=== PATIENT | male | born 1930 | race Caucasian/White ===

== ENCOUNTER 2017-10-11 10:19 | Emergency (ER) | payer MEDICARE, MEDICAID ==
[2017-10-11 10:21] VITALS: BMI 29.9
[2017-10-11 10:22] VITALS: BP 140/77; PULSE 77; RESP 20; TEMP 96.4; O2SAT 97
--- NOTE | 2017-10-11 10:43 | ED PDOC ---
HPI: Psych/Substance Abuse Time Seen by Provider: 10/11/17 10:28 Chief Complaint (Nursing): Psychiatric Evaluation Chief Complaint (Provider): Aggressive History Per: Other (nurse) History/Exam Limitations: clinical condition Onset/Duration Of Symptoms: Days (today) Additional Complaint(s): Pt. was aggressive at the [facility] and sent to the ED. Pt. with limited communication. Not aggressive in the ED. In no distress or appearance of pain. Past Medical History Reviewed: Historical Data, Nursing Documentation, Vital Signs Vital Signs: Last Vital Signs Temp 96.4 F L 10/11/17 10:21 Pulse 77 10/11/17 10:21 Resp 20 10/11/17 10:21 BP 140/77 10/11/17 10:21 Pulse Ox 97 10/11/17 10:21 - Medical History PMH: Parkinson's Disease Denies: Depression - Family History Family History: States: Unknown Family Hx - Living Arrangements Living Arrangements: Long-Term/Assist Lvng - Home Medications Home Medications: Ambulatory Orders Medication Instructions Recorded Carbidopa/Levodopa/Entacapone 150 mg PO Q4H 05/26/14 [Stalevo 150] Pramipexole Di-HCl [Mirapex ER] 2.25 mg PO QPM 05/26/14 Rasagiline Mesylate [Azilect] 1 mg PO DAILY 05/26/14 Vitamin B Complex & Vitamin C 1 tab PO DAILY 05/26/14 [Strovite] - Allergies Allergies/Adverse Reactions: Allergies Allergy/AdvReac Type Severity Reaction Status Date / Time No Known Allergies Allergy Verified 10/11/17 10:28 Review of Systems Review Of Systems: ROS cannot be obtained secondary to pt's inabilty to answer questions. Physical Exam - Reviewed Nursing Documentation Reviewed: Yes Vital Signs Reviewed: Yes - Physical Exam Appears: Positive for: Well, Non-toxic, No Acute Distress Head Exam: Positive for: ATRAUMATIC, NORMAL INSPECTION, NORMOCEPHALIC Skin: Positive for: Normal Color, Warm, DRY Eye Exam: Positive for: Normal appearance, PERRL. Negative for: Periorbital swelling, Periorbital tenderness ENT: Positive for: Normal ENT Inspection. Negative for: Nasal Congestion, Pharyngeal Erythema Neck: Positive for: Normal, Painless ROM, Supple Cardiovascular/Chest: Positive for: Regular Rate, Rhythm. Negative for: Edema Respiratory: Positive for: CNT, Normal Breath Sounds Gastrointestinal/Abdominal: Positive for: Normal Exam, Bowel Sounds, Soft. Negative for: Tenderness Back: Positive for: Normal Inspection. Negative for: L CVA Tenderness, R CVA Tenderness Extremity: Positive for: Other. Negative for: Normal ROM (moving extremities on his will), Tenderness, Calf Tenderness Neurologic/Psych: Positive for: Alert, Other (limited as pt. has dementia and not following commands; moving on his own will.). Negative for: Oriented, Facial Droop - ECG O2 Sat by Pulse Oximetry: 97 - Progress ED Course And Treament: 1141: Crisis saw pt. Does not meet criteria for admit. Stable. Alert. Disposition - Clinical Impression Clinical Impression: Dementia - Patient ED Disposition Is Patient to be Admitted: No Counseled Patient/Family Regarding: Diagnosis, Need For Followup - Disposition Referrals: [facility] [Outside] - 10/16/17 Disposition: Other Institution Disposition Time: 11:42 Condition: STABLE Additional Instructions: Return if not better in 3 days. Instructions: Dementia (ED) Forms: [employer] (Estonian)
== END 2017-10-11 11:52 | disposition home or self-care (01) ==
LOC: H.ER 10:19
DX: F03.90 Unspecified dementia, unspecified severity, without behavioral disturbance, psychotic disturbance, mood disturbance, and anxiety (principal); G20 Parkinson's disease

== ENCOUNTER 2018-08-12 00:04 | Inpatient (IN) | payer MEDICARE, MEDICAID ==
[2018-08-12 00:18] VITALS: BMI 26.6
[2018-08-12] MEDS ORDERED: Sodium Chloride 0.9% 1,000 ML IV STA (00:43)
--- NOTE | 2018-08-12 01:25 | ED PDOC ---
HPI: SOB/CHF/COPD Time Seen by Provider: 08/12/18 00:15 Chief Complaint (Nursing): Shortness Of Breath Chief Complaint (Provider): Shortness of breath History Per: Patient, EMS History/Exam Limitations: other (Parkinson's and dementia) Onset/Duration Of Symptoms: Mins Current Symptoms Are (Timing): Still Present Additional Complaint(s): 88 year old male, with a past medical history of Parkinson's and dementia, HTN, and recent prolonged stay in the hospital for sepsis, presents to the ED via EMS complaining of shortness of breath. Patient was sent from the detention at [facility]. The detention had called EMS because patient was hypoxic to 90% on room air. Patient denies fever. History is limited because of patient's dementia. PMD: none provided Past Medical History Reviewed: Historical Data, Nursing Documentation, Vital Signs Vital Signs: Last Vital Signs Temp 98.3 F 08/12/18 00:18 Pulse 103 H 08/12/18 00:30 Resp 31 H 08/12/18 00:30 BP 144/79 08/12/18 00:18 Pulse Ox 93 L 08/12/18 00:30 - Medical History PMH: CHF, Dementia, HTN (denies), Parkinson's Disease Denies: Depression, Diabetes, Hepatitis, HIV, Seizures, Sexually Transmitted Disease - Surgical History Surgical History: No Surg Hx - Family History Family History: States: Unknown Family Hx - Home Medications Home Medications: Ambulatory Orders Medication Instructions Recorded Carbidopa/Levodopa/Entacapone 0.5 tab PEG QID 05/26/14 [Stalevo 150] Pramipexole Di-HCl [Mirapex ER] 0.5 mg PEG TID 05/26/14 Albuterol Sulfate 2.5 mg IH Q8 07/05/18 Finasteride [Proscar] 5 mg PEG DAILY 07/05/18 Scopolamine 1 mg/72 hr 1 patch TOP Q72 07/05/18 [Transderm-Scop] Ascorbic Acid [Vitamin C 500 mg 500 mg PEG DAILY 08/12/18 Tab] Dextran 70/Hypromellose 1 each OP BID 08/12/18 [Artificial Tears] Doxazosin [Cardura] 4 mg PEG DAILY 08/12/18 Entacapone [Comtan] 200 mg PEG QID 08/12/18 Famotidine [Pepcid] 20 mg PEG DAILY 08/12/18 Ipratropium 0.02% [Ipratropium 0.02 inh IH Q8 08/12/18 Liberty 2.5 Ml] Metoprolol Tartrate [Lopressor] 25 mg PEG BID 08/12/18 Rasagiline Mesylate [Azilect] 1 mg PEG DAILY 08/12/18 - Allergies Allergies/Adverse Reactions: Allergies Allergy/AdvReac Type Severity Reaction Status Date / Time No Known Allergies Allergy Verified 10/11/17 10:28 Review of Systems ROS Statement: Except As Marked, All Systems Reviewed And Found Negative Constitutional: Negative for: Fever Respiratory: Positive for: Other (hypoxia) Physical Exam - Reviewed Nursing Documentation Reviewed: Yes Vital Signs Reviewed: Yes - Physical Exam Appears: Positive for: In Acute Distress (Chronically ill) Head Exam: Positive for: ATRAUMATIC, NORMOCEPHALIC Skin: Positive for: Normal Color, Warm, Dry Eye Exam: Positive for: Normal appearance ENT: Positive for: Other (Dry mucous membranes) Neck: Positive for: Normal, Painless ROM Cardiovascular/Chest: Positive for: Regular Rate, Rhythm Respiratory: Positive for: Normal Breath Sounds, Other (tachypnea ). Negative for: Wheezing, Respiratory Distress Gastrointestinal/Abdominal: Positive for: Normal Exam, Soft. Negative for: Tenderness Rectal: Positive for: Other (Multiple ulcers to the perirectal area) Extremity: Positive for: Normal ROM Neurologic/Psych: Positive for: Alert, Other (Does not speak) - Laboratory Results Result Diagrams: 08/12/18 01:03 08/12/18 01:03 - ECG O2 Sat by Pulse Oximetry: 93 (RA) Pulse Ox Interpretation: Abnormal Medical Decision Making Medical Decision Making: Initial Impression: 88 year old male with a medical history of Parkinson's, dementia, HTN, and recent prolonged stay in hospital for sepsis, presenting with hypoxia and tachypnea. Patient is afebrile and has 93-94% oxygen saturation on room air in ER. Initial Plan: --VBG --ECG --CMP --Magnesium stat --Phosphorous stat --CBC --PTT --Prothrombin time --Chest X-ray --Sodium chloride 1000mL IV --Blood culture -Urine culture --Urinalysis Will check blood work, chest X-ray, and urine studies for signs of infection. PAtient has signs of hypernatremia and UTI Baxter was replaced sterilly ABx given in accordance with previous Microbiology D5 in sterile water given for hypernatremia Dr. Boris gonsales Condition: fair ------- Scribe Attestation: Documented by Krzysztof Michaud acting as a scribe for Carlos Robles MD. Provider Scribe Attestation: All medical record entries made by the Scribe were at my direction and personally dictated by me. I have reviewed the chart and agree that the record accurately reflects my personal performance of the history, physical exam, medical decision making, and the department course for this patient. I have also personally directed, reviewed, and agree with the discharge instructions and disposition. Disposition - Clinical Impression Clinical Impression: Hypernatremia Discussed With : Hamilton Hyatt Seman - Disposition Disposition Time: 02:00 Condition: FAIR
[2018-08-12 01:26] LABS: BASO # 0.1 K/uL (0.0-0.2); BASO % 0.7 % (0.0-2.0); EOS % 0.3 % (0.0-4.0); HEMOGLOBIN 9.5 g/dL (12.0-18.0); LYMPH # 0.7 K/uL (1.0-4.3); MEAN CELL VOLUME 92.3 fl (80.0-94.0); MEAN CORPUSCULAR HEMOGLOBIN 29.5 pg (27.0-31.0); MEAN PLATELET VOLUME 8.3 fl (7.2-11.7); MONO # 0.4 K/uL (0.0-0.8); MONO % 5.2 % (0.0-10.0); NEUT # 5.8 K/uL (1.8-7.0); NEUT % 83.8 % (50.0-75.0); NRBC % 0.1 % (0.0-0.0); RBC 3.21 Mil/uL (4.40-5.90); RED CELL DISTRIBUTION WIDTH 17.2 % (11.5-14.5)
[2018-08-12 01:33] LABS: INR 1.3; PROTHROMBIN TIME 15.2 Seconds (9.8-13.1)
[2018-08-12 01:36] LABS: PARTIAL THROMBOPLASTIN TIME 35.3 Seconds (25.6-37.1)
[2018-08-12 01:37] LABS: SQUAMOUS EPITHIAL < 1 /hpf (0-5); URINE BACTERIA MANY (<OCC); URINE BILIRUBIN NEGATIVE (NEGATIVE); URINE BLOOD MODERATE (NEGATIVE); URINE CLARITY TURBID (Clear); URINE COLOR AMBER (YELLOW); URINE GLUCOSE (UA) NEG (NEGATIVE); URINE LEUKOCYTE ESTERASE LARGE Leu/uL (Negative); URINE PROTEIN 30 mg/dL (NEGATIVE); WBC CLUMPS OCC /hpf
[2018-08-12 01:38] LABS: ALB/GLOB RATIO 0.6 (1.0-2.1); ALBUMIN 2.5 g/dL (3.5-5.0); ALT/SGPT 34 U/L (21-72); AST/SGOT 33 U/L (17-59); BLOOD UREA NITROGEN 57 mg/dl (9-20); GFR NON-AFRICAN AMERICAN > 60
[2018-08-12] MEDS ORDERED: Meropenem 1 GM in Sodium Chloride 0.9% 100 ML IVPB STA (02:28)
--- NOTE | 2018-08-12 09:41 | RAD ---
Date of service: 08/12/2018 HISTORY: Sepsis Patient COMPARISON: No prior. FINDINGS: LUNGS: No active pulmonary disease. PLEURA: No significant pleural effusion identified, no pneumothorax apparent. CARDIOVASCULAR: Aortic calcifications. Cardiomegaly. No pulmonary vascular congestion. OSSEOUS STRUCTURES: No significant abnormalities. VISUALIZED UPPER ABDOMEN: Normal. OTHER FINDINGS: None. IMPRESSION: No active disease.
--- NOTE | 2018-08-12 15:04 | CP.PCM.HP ---
History of Present Illness - History of Present Illness History of Present Illness: CC: Shortness of Breath, AMS,and Generalized Weakness History of Present Illness: History from the Daughter (Tal) and Medical Record An 88 year old male, with a past medical history of Parkinson's and Dementia, HTN, and recent prolonged stay in the hospital for sepsis was transferred from [place] for AMS, shortness of breath and generalized weakness. Patient was sent from the custodial at [facility]. The custodial had called EMS because patient was Hypoxic to 90% on room air. Patient denies fever. History is limited because of patient's dementia. In the ER, patient was found to have Stage IV Sacral Decubitus Ulcer, Severe Dehydration and Hypernatremia. Present on Admission - Present on Admission Any Indicators Present on Admission: Yes Decubitus Ulcer Present: Yes Decubitus Ulcer Stage: IV Review of Systems - Review of Systems All systems: reviewed and no additional remarkable complaints except Review of Systems: as per HPI Past Patient History - Tetanus Immunizations Tetanus Immunization: Unknown - Past Medical History & Family History Past Medical History?: Yes Past Family History: Reviewed and not pertinent - Past Social History Smoking Status: Never Smoked Alcohol: None Drugs: Denies - CARDIAC Hx Congestive Heart Failure: Yes Hx Hypertension: Yes (denies) - PULMONARY Hx Respiratory Disorders: Yes (COPD) - NEUROLOGICAL Hx Dementia: Yes Hx Parkinson's Disease: Yes Hx Seizures: No - HEENT Hx HEENT Problems: No - RENAL Hx Chronic Kidney Disease: No - ENDOCRINE/METABOLIC Hx Endocrine Disorders: No - HEMATOLOGICAL/ONCOLOGICAL Hx Human Immunodeficiency Virus (HIV): No - INTEGUMENTARY Hx Dermatological Problems: Yes Other/Comment: Unstageable ulcer to sacrum - MUSCULOSKELETAL/RHEUMATOLOGICAL Hx Musculoskeletal Disorders: Yes Hx Falls: Yes - GASTROINTESTINAL Hx Gastrointestinal Disorders: Yes Other/Comment: Incontinence - GENITOURINARY/GYNECOLOGICAL Hx Sexually Transmitted Disorders: No - PSYCHIATRIC Hx Depression: No - SURGICAL HISTORY Hx Surgeries: No (pt denies) - ANESTHESIA Hx Anesthesia: (UNKNOWN) Hx Anesthesia Reactions: (UNKNOWN) Hx Malignant Hyperthermia: (UNKNOWN) Has any member of the family had a problem w/ anesthesia?: (UNKNOWN) Meds Allergies/Adverse Reactions: Allergies Allergy/AdvReac Type Severity Reaction Status Date / Time No Known Allergies Allergy Verified 10/11/17 10:28 Physical Exam - Constitutional Appears: In Acute Distress, Cachectic, Chronically Ill - Head Exam Head Exam: ATRAUMATIC, NORMAL INSPECTION, NORMOCEPHALIC - ENT Exam ENT Exam: Mucous Membranes Dry - Respiratory Exam Respiratory Exam: Clear to Auscultation Bilateral - Cardiovascular Exam Cardiovascular Exam: +S1, +S2 - GI/Abdominal Exam GI & Abdominal Exam: Normal Bowel Sounds, Soft Additional comments: +PEG tube. - Extremities Exam Additional comments: Atrophy - Back Exam Additional comments: Large stage IV Sacral Decubitus Ulcer with Necrotic Tissues. - Skin Additional comments: Pressure Ulcers Stage IV Sacral Pressure Ulcers Results - Vital Signs Recent Vital Signs: Last Vital Signs Temp 98.2 F 08/12/18 08:38 Pulse 86 08/12/18 08:38 Resp 20 08/12/18 08:38 BP 121/59 L 08/12/18 06:15 Pulse Ox 98 08/12/18 08:38 - Labs Result Diagrams: 08/15/18 06:05 08/15/18 06:05 Labs: Laboratory Results - last 24 hr 08/12/18 08/12/18 08/12/18 01:03 01:03 01:03 WBC 7.0 RBC 3.21 L Hgb 9.5 L Hct 29.6 L MCV 92.3 MCH 29.5 MCHC 32.0 L RDW 17.2 H Plt Count 394 MPV 8.3 Neut % (Auto) 83.8 H Lymph % (Auto) 10.0 L Navarro % (Auto) 5.2 Eos % (Auto) 0.3 Baso % (Auto) 0.7 Neut # (Auto) 5.8 Lymph # (Auto) 0.7 L Navarro # (Auto) 0.4 Eos # (Auto) 0.0 Baso # (Auto) 0.1 PT 15.2 H INR 1.3 APTT 35.3 Sodium 155 H Potassium 3.7 Chloride 116 H Carbon Dioxide 33 H Anion Gap 10 BUN 57 H Creatinine 0.8 Est GFR ( Amer) > 60 Est GFR (Non-Af Amer) > 60 Random Glucose 123 H Calcium 8.0 L Phosphorus 3.5 Magnesium 2.4 H Total Bilirubin 0.6 AST 33 ALT 34 Alkaline Phosphatase 81 Total Protein 6.4 Albumin 2.5 L Globulin 3.9 Albumin/Globulin Ratio 0.6 L Urine Color Urine Clarity Urine pH Ur Specific [place] Urine Protein Urine Glucose (UA) Urine Ketones Urine Blood Urine Nitrate Urine Bilirubin Urine Urobilinogen Ur Leukocyte Esterase Urine RBC (Auto) Urine WBC Clumps (Auto) Urine Microscopic WBC Ur Squamous Epith Cells Urine Bacteria 08/12/18 01:25 WBC RBC Hgb Hct MCV MCH MCHC RDW Plt Count MPV Neut % (Auto) Lymph % (Auto) Navarro % (Auto) Eos % (Auto) Baso % (Auto) Neut # (Auto) Lymph # (Auto) Navarro # (Auto) Eos # (Auto) Baso # (Auto) PT INR APTT Sodium Potassium Chloride Carbon Dioxide Anion Gap BUN Creatinine Est GFR ( Amer) Est GFR (Non-Af Amer) Random Glucose Calcium Phosphorus Magnesium Total Bilirubin AST ALT Alkaline Phosphatase Total Protein Albumin Globulin Albumin/Globulin Ratio Urine Color Nina Urine Clarity Turbid Urine pH 5.0 Ur Specific [place] 1.021 Urine Protein 30 Urine Glucose (UA) Neg Urine Ketones Negative Urine Blood Moderate Urine Nitrate Negative Urine Bilirubin Negative Urine Urobilinogen 2.0 Ur Leukocyte Esterase Large Urine RBC (Auto) 19 H Urine WBC Clumps (Auto) Occ H Urine Microscopic WBC 337 H Ur Squamous Epith Cells < 1 Urine Bacteria Many H Assessment & Plan (1) Altered mental state Assessment and Plan: due to Metabolic Encephalopathy Status: Acute Priority: High (2) Hypernatremia Status: Acute Priority: High (3) Dementia Status: Chronic Priority: High (4) Parkinsonian syndrome Status: Chronic Priority: High (5) UTI due to extended-spectrum beta lactamase (ESBL) producing Escherichia coli Status: Acute Priority: High - Assessment and Plan (Free Text) Plan: IVF D5W Free Water Flush PEG Feeding @35cc/hr, and Increase by 10cc/hr every 6hrs to targert 60cc/hrC/W IV Add IV Vancomycin Wound Care Nurse, ID and Surgery Consult Blood, Wound and Urine Cultures Monitor CBC and BMP ESR Dietary Consult May Need CT or MRI of the Back to R/co Osteomyelitis. D/w patient's Daughter about POC, and RN/Wound care nurse. Also Discussed about the Code status, and she wanted everything to be done. Tel#[phone].
[2018-08-12 16:15] LABS: VENOUS BLOOD GAS BASE EXCESS 7.9 mmol/L (0.0-2.0); VENOUS BLOOD GAS PCO2 41 mmHg (40-60); VENOUS BLOOD GAS PO2 48 mm/Hg (30-55)
[2018-08-12] MEDS: Artificial Tears Opht Soln OU SCH (16:45)
[2018-08-12 16:48] LABS: BLOOD UREA NITROGEN 44 mg/dl (9-20); CALCIUM 7.9 mg/dL (8.4-10.2); GFR NON-AFRICAN AMERICAN > 60
[2018-08-12] MEDS: PRAMIPEXOLE DI HCL 0.5 MG PEG SCH (16:59)
[2018-08-12] MEDS: RASAGILINE MESYLATE 1 MG PEG SCH (17:00)
[2018-08-12] MEDS: Meropenem 1 GM in Sodium Chloride 0.9% 100 ML IVPB SCH (17:01)
[2018-08-12] MEDS ORDERED: Povidone Iodine Topical 10% Sol ONE (19:52)
[2018-08-13] MEDS: Meropenem 1 GM in Sodium Chloride 0.9% 100 ML IVPB SCH ×3 (00:59→16:11)
[2018-08-13] MEDS: Dakin's Topical 0.5%-Full Strength (480 ml) TOP SCH ×2 (01:10→08:39)
--- NOTE | 2018-08-13 06:20 | CP.PCM.CON ---
History of Present Illness - History of Present Illness History of Present Illness: General Surgery Consult Note for Dr. Denise Consult: Stage 4 sacral decubitus ulcer HPI: 88 year old male, past medical history of Parkinson's and dementia, presents with a stage 4 sacral decubitus ulcer. Patient was recently discharged from [facility] after diagnosis of urosepsis with prolonged hospital stay that resulted in sacral ulcer formation that has progressively worsened over the last few weeks. Patient is poor historian. History obtained via previous medical records. Noticed to have increased oral secretions. No fevers, chills, nausea, vomiting, diarrhea, shortness of breath, chest pain, or urinary symptoms at this time. PMH: see above PSH: unknown FH: noncontributory SH: denies t/a/d ALL: NKDA Meds: See MAR Review of Systems - Review of Systems Systems not reviewed;Unavailable: Dementia Past Patient History - Tetanus Immunizations Tetanus Immunization: Unknown - Past Medical History & Family History Past Medical History?: Yes - Past Social History Smoking Status: Never Smoked - CARDIAC Hx Congestive Heart Failure: Yes Hx Hypertension: Yes (denies) - PULMONARY Hx Respiratory Disorders: Yes (COPD) - NEUROLOGICAL Hx Dementia: Yes Hx Parkinson's Disease: Yes Hx Seizures: No - HEENT Hx HEENT Problems: No - RENAL Hx Chronic Kidney Disease: No - ENDOCRINE/METABOLIC Hx Endocrine Disorders: No - HEMATOLOGICAL/ONCOLOGICAL Hx Human Immunodeficiency Virus (HIV): No - INTEGUMENTARY Hx Dermatological Problems: Yes Other/Comment: Unstageable ulcer to sacrum - MUSCULOSKELETAL/RHEUMATOLOGICAL Hx Musculoskeletal Disorders: Yes Hx Falls: Yes - GASTROINTESTINAL Hx Gastrointestinal Disorders: Yes Other/Comment: Incontinence - GENITOURINARY/GYNECOLOGICAL Hx Sexually Transmitted Disorders: No - PSYCHIATRIC Hx Depression: No - SURGICAL HISTORY Hx Surgeries: No (pt denies) - ANESTHESIA Hx Anesthesia: (UNKNOWN) Hx Anesthesia Reactions: (UNKNOWN) Hx Malignant Hyperthermia: (UNKNOWN) Has any member of the family had a problem w/ anesthesia?: (UNKNOWN) Meds Allergies/Adverse Reactions: Allergies Allergy/AdvReac Type Severity Reaction Status Date / Time No Known Allergies Allergy Verified 10/11/17 10:28 - Medications Medications: Current Medications Acetaminophen (Tylenol 325mg Tab) 650 mg PEG Q6 PRN PRN Reason: Temperature 101 F and above Albuterol/Ipratropium (Duoneb 3 Mg/0.5 Mg (3 Ml) Ud) 3 ml INH RQ6 PRN PRN Reason: Shortness of Breath Artificial Tears (Artificial Tears) 1 drop OU BID [facility] Last Admin: 08/12/18 16:45 Dose: 1 drop Ascorbic Acid (Vitamin C 500 Mg Tab) 500 mg PEG DAILY [facility] Last Admin: 08/12/18 16:50 Dose: 500 mg Bisacodyl (Dulcolax) 10 mg RC DAILY PRN PRN Reason: if no BM adrienne 3 days Carbidopa/Levodopa (Sinemet) 1.5 tab PEG QID [facility] Last Admin: 08/12/18 22:03 Dose: 1.5 tab Doxazosin Mesylate (Cardura) 4 mg PEG DAILY [facility] Last Admin: 08/12/18 16:47 Dose: 4 mg Entacapone (Comtan) 200 mg PEG QID [facility] Last Admin: 08/12/18 22:02 Dose: 200 mg Finasteride (Proscar) 5 mg PEG DAILY [facility] Last Admin: 08/12/18 16:48 Dose: 5 mg Heparin Sodium (Porcine) (Heparin) 5,000 units SC Q8 [facility]; Protocol Last Admin: 08/13/18 01:14 Dose: 5,000 units Home Med (Pramipexole Di-Hcl [Mirapex Er]) 0.5 mg PEG TID [facility] Last Admin: 08/12/18 16:59 Dose: 0.5 mg Home Med (Rasagiline Mesylate [Azilect]) 1 mg PEG DAILY [facility] Last Admin: 08/12/18 17:00 Dose: 1 mg Meropenem 1 gm/ Sodium (Chloride) 100 mls @ 100 mls/hr IVPB Q8 [facility]; Protocol Last Admin: 08/13/18 00:59 Dose: 100 mls/hr Vancomycin HCl 1 gm/ Sodium (Chloride) 250 mls @ 166.667 mls/hr IVPB Q12H [facility]; Protocol Last Admin: 08/13/18 03:18 Dose: 166.667 mls/hr Dextrose (Dextrose 5% In Water 1000 Ml) 1,000 mls @ 100 mls/hr IV .Q10H [facility] Stop: 08/13/18 23:22 Last Admin: 08/13/18 00:58 Dose: 100 mls/hr Metoprolol Tartrate (Lopressor) 25 mg PEG BID [facility] Last Admin: 08/12/18 16:50 Dose: 25 mg Pantoprazole Sodium (Protonix Inj) 40 mg IVP DAILY [facility] Last Admin: 08/12/18 16:52 Dose: 40 mg Scopolamine (Transderm-Scop) 1 patch TD Q72 [facility] Last Admin: 08/12/18 16:51 Dose: 1 patch Sodium Hypochlorite (Dakins Solution 0.5%) 0 ml TOP DAILY [facility] Last Admin: 08/13/18 01:10 Dose: Not Given Sodium Hypochlorite (Dakins Solution 0.25%) 0 ml TOP DAILY [facility] Zinc Sulfate (Zinc Sulfate 220 Mg Cap) 220 mg PEG DAILY [facility] Last Admin: 08/12/18 16:51 Dose: 220 mg Physical Exam - Constitutional Appears: No Acute Distress, Older Than Stated Age, Cachectic, Chronically Ill - Head Exam Head Exam: ATRAUMATIC, NORMAL INSPECTION, NORMOCEPHALIC - Eye Exam Eye Exam: EOMI - ENT Exam ENT Exam: Mucous Membranes Dry - Respiratory Exam Respiratory Exam: absent: Respiratory Distress - GI/Abdominal Exam GI & Abdominal Exam: Soft. absent: Tenderness - Neurological Exam Neurological exam: Alert - Skin Additional comments: stage 4 chronic sacral decubitus ulcer - areas of devitalized tissue, with visible bone Foul smelling, purlent drainage, no bleeding, erythematous wound edges Results - Vital Signs Recent Vital Signs: Last Vital Signs Temp 98.5 F 08/13/18 00:32 Pulse 79 08/13/18 00:32 Resp 19 08/13/18 00:32 BP 102/51 L 08/13/18 00:32 Pulse Ox 96 08/13/18 00:32 - Labs Result Diagrams: 08/12/18 01:03 08/12/18 16:15 Labs: Laboratory Results - last 24 hr 08/12/18 08/12/18 08/12/18 01:05 16:15 16:15 D-Dimer, Quantitative 841 H pO2 48 VBG pH 7.50 H VBG pCO2 41 VBG HCO3 30.6 VBG Total CO2 33.3 H VBG O2 Sat (Calc) 87.6 H VBG Base Excess 7.9 H VBG Potassium 3.5 L Sodium 155.0 H 152 H Chloride 119.0 H 119 H Glucose 121 H Lactate 1.0 FiO2 21.0 Potassium 3.6 Carbon Dioxide 31 H Anion Gap 6 L BUN 44 H Creatinine 0.8 Est GFR ( Amer) > 60 Est GFR (Non-Af Amer) > 60 Random Glucose 124 H Calcium 7.9 L Venous Blood Potassium 3.5 L Assessment & Plan - Assessment and Plan (Free Text) Assessment: 88M w/ chronic stage 4 sacral decubitus ulcer Plan: Wet to dry dressings with Dakins daily Wound vac placement Debridement of fibrotic, devitalized tissue Recommend MRI of pelvis or bone scan to rule out osteomyelitis Air mattress Turn Q2 Off load Further recommendations per Dr. Howie Anaya PGY1
[2018-08-13 06:33] LABS: BASO % 0.3 % (0.0-2.0); EOS % 0.9 % (0.0-4.0); LYMPH # 0.7 K/uL (1.0-4.3); LYMPH % 14.1 % (20.0-40.0); MEAN CELL VOLUME 92.5 fl (80.0-94.0); MEAN CORPUSCULAR HEMOGLOBIN 30.2 pg (27.0-31.0); MEAN CORPUSCULAR HGB CONC 32.6 g/dL (33.0-37.0); MEAN PLATELET VOLUME 7.9 fl (7.2-11.7); MONO # 0.3 K/uL (0.0-0.8); NEUT # 4.2 K/uL (1.8-7.0); NEUT % 79.7 % (50.0-75.0); RBC 2.65 Mil/uL (4.40-5.90); RED CELL DISTRIBUTION WIDTH 17.1 % (11.5-14.5); WHITE BLOOD COUNT 5.3 K/uL (4.8-10.8)
[2018-08-13 06:56] LABS: ALB/GLOB RATIO 0.6 (1.0-2.1); ALBUMIN 2.1 g/dL (3.5-5.0); ALT/SGPT 15 U/L (21-72); AST/SGOT 30 U/L (17-59); BLOOD UREA NITROGEN 39 mg/dl (9-20); CALCIUM 7.8 mg/dL (8.4-10.2); GFR NON-AFRICAN AMERICAN > 60
--- NOTE | 2018-08-13 08:08 | CP.PCM.PN ---
Subjective - Date & Time of Evaluation Date of Evaluation: 08/13/18 Time of Evaluation: 08:05 - Subjective Subjective: SURGERY NOTE FOR DR. DELGADO 88M seen and examined at bedside. No acute events overnight. No fevers overnight. Wound debrided yesterday. Objective - Vital Signs/Intake and Output Vital Signs (last 24 hours): Temp Pulse Resp BP Pulse Ox 98.5 F 79 19 102/51 L 96 08/13/18 00:32 08/13/18 00:32 08/13/18 00:32 08/13/18 00:32 08/13/18 00:32 - Medications Medications: Current Medications Acetaminophen (Tylenol 325mg Tab) 650 mg PEG Q6 PRN PRN Reason: Temperature 101 F and above Albuterol/Ipratropium (Duoneb 3 Mg/0.5 Mg (3 Ml) Ud) 3 ml INH RQ6 PRN PRN Reason: Shortness of Breath Artificial Tears (Artificial Tears) 1 drop OU BID [facility] Last Admin: 08/12/18 16:45 Dose: 1 drop Ascorbic Acid (Vitamin C 500 Mg Tab) 500 mg PEG DAILY [facility] Last Admin: 08/12/18 16:50 Dose: 500 mg Bisacodyl (Dulcolax) 10 mg RC DAILY PRN PRN Reason: if no BM adrienne 3 days Carbidopa/Levodopa (Sinemet) 1.5 tab PEG QID [facility] Last Admin: 08/12/18 22:03 Dose: 1.5 tab Doxazosin Mesylate (Cardura) 4 mg PEG DAILY [facility] Last Admin: 08/12/18 16:47 Dose: 4 mg Entacapone (Comtan) 200 mg PEG QID [facility] Last Admin: 08/12/18 22:02 Dose: 200 mg Finasteride (Proscar) 5 mg PEG DAILY [facility] Last Admin: 08/12/18 16:48 Dose: 5 mg Heparin Sodium (Porcine) (Heparin) 5,000 units SC Q8 [facility]; Protocol Last Admin: 08/13/18 01:14 Dose: 5,000 units Home Med (Pramipexole Di-Hcl [Mirapex Er]) 0.5 mg PEG TID [facility] Last Admin: 08/12/18 16:59 Dose: 0.5 mg Home Med (Rasagiline Mesylate [Azilect]) 1 mg PEG DAILY [facility] Last Admin: 08/12/18 17:00 Dose: 1 mg Meropenem 1 gm/ Sodium (Chloride) 100 mls @ 100 mls/hr IVPB Q8 [facility]; Protocol Last Admin: 08/13/18 00:59 Dose: 100 mls/hr Vancomycin HCl 1 gm/ Sodium (Chloride) 250 mls @ 166.667 mls/hr IVPB Q12H [facility]; Protocol Last Admin: 08/13/18 03:18 Dose: 166.667 mls/hr Dextrose (Dextrose 5% In Water 1000 Ml) 1,000 mls @ 100 mls/hr IV .Q10H [facility] Stop: 08/13/18 23:22 Last Admin: 08/13/18 00:58 Dose: 100 mls/hr Metoprolol Tartrate (Lopressor) 25 mg PEG BID [facility] Last Admin: 08/12/18 16:50 Dose: 25 mg Pantoprazole Sodium (Protonix Inj) 40 mg IVP DAILY [facility] Last Admin: 08/12/18 16:52 Dose: 40 mg Scopolamine (Transderm-Scop) 1 patch TD Q72 [facility] Last Admin: 08/12/18 16:51 Dose: 1 patch Sodium Hypochlorite (Dakins Solution 0.5%) 0 ml TOP DAILY [facility] Last Admin: 08/13/18 01:10 Dose: Not Given Sodium Hypochlorite (Dakins Solution 0.25%) 0 ml TOP DAILY [facility] Zinc Sulfate (Zinc Sulfate 220 Mg Cap) 220 mg PEG DAILY [facility] Last Admin: 08/12/18 16:51 Dose: 220 mg - Labs Labs: 08/13/18 05:30 08/13/18 05:30 PT 15.2 Seconds (9.8-13.1) H 08/12/18 01:03 INR 1.3 08/12/18 01:03 APTT 35.3 Seconds (25.6-37.1) 08/12/18 01:03 - Constitutional Appears: No Acute Distress - Respiratory Exam Respiratory Exam: Clear to Ausculation Bilateral, NORMAL BREATHING PATTERN - Cardiovascular Exam Cardiovascular Exam: REGULAR RHYTHM, +S1, +S2 - GI/Abdominal Exam GI & Abdominal Exam: Soft. absent: Distended, Firm, Guarding, Rigid, Tenderness - Extremities Exam Extremities Exam: absent: Pedal Edema, Tenderness - Back Exam Additional comments: stage 4 chronic sacral decubitus ulcer Assessment and Plan - Assessment and Plan (Free Text) Assessment: 88M with sacral decubitus s/p bedside debridement POD#1 Plan: - continue wet to dry dressing - Wound care nurse consult Further recs discuss with Dr. Howie Cao, PGY3
[2018-08-13] MEDS: Artificial Tears Opht Soln OU SCH ×2 (08:35→16:12)
[2018-08-13] MEDS: RASAGILINE MESYLATE 1 MG PEG SCH (08:36)
[2018-08-13] MEDS: PRAMIPEXOLE DI HCL 0.5 MG PEG SCH ×3 (08:38→16:12)
[2018-08-13] MEDS: Dakin's Topical 0.25%-Half Strength (480 ml) TOP SCH (08:39)
[2018-08-13] MEDS ORDERED: Dakin's Topical 0.5%-Full Strength (480 ml) TOP SCH (09:00)
--- NOTE | 2018-08-13 11:41 | CP.PCM.CON ---
Past Patient History - Tetanus Immunizations Tetanus Immunization: Unknown - Past Medical History & Family History Past Medical History?: Yes - Past Social History Smoking Status: Never Smoked - CARDIAC Hx Congestive Heart Failure: Yes Hx Hypertension: Yes (denies) - PULMONARY Hx Respiratory Disorders: Yes (COPD) - NEUROLOGICAL Hx Dementia: Yes Hx Parkinson's Disease: Yes Hx Seizures: No - HEENT Hx HEENT Problems: No - RENAL Hx Chronic Kidney Disease: No - ENDOCRINE/METABOLIC Hx Endocrine Disorders: No - HEMATOLOGICAL/ONCOLOGICAL Hx Human Immunodeficiency Virus (HIV): No - INTEGUMENTARY Hx Dermatological Problems: Yes Other/Comment: Unstageable ulcer to sacrum - MUSCULOSKELETAL/RHEUMATOLOGICAL Hx Musculoskeletal Disorders: Yes Hx Falls: Yes - GASTROINTESTINAL Hx Gastrointestinal Disorders: Yes Other/Comment: Incontinence - GENITOURINARY/GYNECOLOGICAL Hx Sexually Transmitted Disorders: No - PSYCHIATRIC Hx Depression: No - SURGICAL HISTORY Hx Surgeries: No (pt denies) - ANESTHESIA Hx Anesthesia: (UNKNOWN) Hx Anesthesia Reactions: (UNKNOWN) Hx Malignant Hyperthermia: (UNKNOWN) Has any member of the family had a problem w/ anesthesia?: (UNKNOWN) Meds Allergies/Adverse Reactions: Allergies Allergy/AdvReac Type Severity Reaction Status Date / Time No Known Allergies Allergy Verified 10/11/17 10:28 - Medications Medications: Current Medications Acetaminophen (Tylenol 325mg Tab) 650 mg PEG Q6 PRN PRN Reason: Temperature 101 F and above Albuterol/Ipratropium (Duoneb 3 Mg/0.5 Mg (3 Ml) Ud) 3 ml INH RQ6 PRN PRN Reason: Shortness of Breath Artificial Tears (Artificial Tears) 1 drop OU BID [facility] Last Admin: 08/13/18 08:35 Dose: 1 drop Ascorbic Acid (Vitamin C 500 Mg Tab) 500 mg PEG DAILY [facility] Last Admin: 08/13/18 08:36 Dose: 500 mg Bisacodyl (Dulcolax) 10 mg RC DAILY PRN PRN Reason: if no BM adrienne 3 days Carbidopa/Levodopa (Sinemet) 1.5 tab PEG QID [facility] Last Admin: 08/13/18 08:35 Dose: 1.5 tab Doxazosin Mesylate (Cardura) 4 mg PEG DAILY [facility] Last Admin: 08/13/18 08:36 Dose: 4 mg Entacapone (Comtan) 200 mg PEG QID [facility] Last Admin: 08/13/18 08:36 Dose: 200 mg Finasteride (Proscar) 5 mg PEG DAILY [facility] Last Admin: 08/13/18 08:37 Dose: 5 mg Heparin Sodium (Porcine) (Heparin) 5,000 units SC Q8 [facility]; Protocol Last Admin: 08/13/18 08:37 Dose: 5,000 units Home Med (Pramipexole Di-Hcl [Mirapex Er]) 0.5 mg PEG TID [facility] Last Admin: 08/13/18 08:38 Dose: 0.5 mg Home Med (Rasagiline Mesylate [Azilect]) 1 mg PEG DAILY [facility] Last Admin: 08/13/18 08:36 Dose: 1 mg Meropenem 1 gm/ Sodium (Chloride) 100 mls @ 100 mls/hr IVPB Q8 [facility]; Protocol Last Admin: 08/13/18 08:35 Dose: 100 mls/hr Vancomycin HCl 1 gm/ Sodium (Chloride) 250 mls @ 166.667 mls/hr IVPB Q12H [facility]; Protocol Last Admin: 08/13/18 03:18 Dose: 166.667 mls/hr Dextrose (Dextrose 5% In Water 1000 Ml) 1,000 mls @ 100 mls/hr IV .Q10H [facility] Stop: 08/13/18 23:22 Last Admin: 08/13/18 08:38 Dose: Not Given Metoprolol Tartrate (Lopressor) 25 mg PEG BID [facility] Last Admin: 08/13/18 08:37 Dose: 25 mg Pantoprazole Sodium (Protonix Inj) 40 mg IVP DAILY [facility] Last Admin: 08/13/18 08:37 Dose: 40 mg Scopolamine (Transderm-Scop) 1 patch TD Q72 [facility] Last Admin: 08/12/18 16:51 Dose: 1 patch Sodium Hypochlorite (Dakins Solution 0.5%) 0 ml TOP DAILY [facility] Last Admin: 08/13/18 08:39 Dose: Not Given Sodium Hypochlorite (Dakins Solution 0.25%) 0 ml TOP DAILY [facility] Last Admin: 08/13/18 08:39 Dose: 1 applic Zinc Sulfate (Zinc Sulfate 220 Mg Cap) 220 mg PEG DAILY [facility] Last Admin: 08/13/18 08:38 Dose: 220 mg Results - Vital Signs Recent Vital Signs: Last Vital Signs Temp 98.4 F 08/13/18 09:10 Pulse 75 1210/18 09:10 Resp 20 08/13/18 09:10 BP 114/60 08/13/18 09:10 Pulse Ox 93 L 08/13/18 09:10 - Labs Result Diagrams: 08/13/18 05:30 08/13/18 05:30 Labs: Laboratory Results - last 24 hr 08/12/18 08/12/18 08/12/18 01:05 16:15 16:15 WBC RBC Hgb Hct MCV MCH MCHC RDW Plt Count MPV Neut % (Auto) Lymph % (Auto) [place] % (Auto) Eos % (Auto) Baso % (Auto) Neut # (Auto) Lymph # (Auto) [place] # (Auto) Eos # (Auto) Baso # (Auto) D-Dimer, Quantitative 841 H pO2 48 VBG pH 7.50 H VBG pCO2 41 VBG HCO3 30.6 VBG Total CO2 33.3 H VBG O2 Sat (Calc) 87.6 H VBG Base Excess 7.9 H VBG Potassium 3.5 L Sodium 155.0 H 152 H Chloride 119.0 H 119 H Glucose 121 H Lactate 1.0 FiO2 21.0 Potassium 3.6 Carbon Dioxide 31 H Anion Gap 6 L BUN 44 H Creatinine 0.8 Est GFR ( Amer) > 60 Est GFR (Non-Af Amer) > 60 Random Glucose 124 H Calcium 7.9 L Phosphorus Magnesium Total Bilirubin AST ALT Alkaline Phosphatase Total Protein Albumin Globulin Albumin/Globulin Ratio Venous Blood Potassium 3.5 L 08/13/18 08/13/18 05:30 05:30 WBC 5.3 RBC 2.65 L Hgb 8.0 L Hct 24.5 L MCV 92.5 MCH 30.2 MCHC 32.6 L RDW 17.1 H Plt Count 307 MPV 7.9 Neut % (Auto) 79.7 H Lymph % (Auto) 14.1 L [place] % (Auto) 5.0 Eos % (Auto) 0.9 Baso % (Auto) 0.3 Neut # (Auto) 4.2 Lymph # (Auto) 0.7 L [place] # (Auto) 0.3 Eos # (Auto) 0.0 Baso # (Auto) 0.0 D-Dimer, Quantitative pO2 VBG pH VBG pCO2 VBG HCO3 VBG Total CO2 VBG O2 Sat (Calc) VBG Base Excess VBG Potassium Sodium 151 H Chloride 120 H Glucose Lactate FiO2 Potassium 3.5 L Carbon Dioxide 30 Anion Gap 5 L BUN 39 H Creatinine 0.8 Est GFR ( Amer) > 60 Est GFR (Non-Af Amer) > 60 Random Glucose 119 H Calcium 7.8 L Phosphorus 3.6 Magnesium 2.2 Total Bilirubin 0.6 AST 30 ALT 15 L D Alkaline Phosphatase 69 Total Protein 5.4 L Albumin 2.1 L Globulin 3.3 Albumin/Globulin Ratio 0.6 L Venous Blood Potassium
--- NOTE | 2018-08-13 11:43 | CARD ---
APPROVED REPORT Date of service: 08/12/2018 EKG Measurement Heart [id number] <Conclusion> Normal sinus rhythm Left axis deviation Minimal voltage criteria for LVH, may be normal variant Nonspecific ST abnormality Abnormal ECG
[2018-08-13 12:41] LABS: VENOUS BLOOD GAS PCO2 49 mmHg (40-60); VENOUS BLOOD GAS PO2 27 mm/Hg (30-55); VENOUS BLOOD PH 7.41 (7.32-7.43)
--- NOTE | 2018-08-13 15:29 | CT ---
Date of service: 08/13/2018 PROCEDURE: CT Lumbar Spine without contrast HISTORY: Stage 4 pressure ulcer, r/o OM COMPARISON: None available. TECHNIQUE: Axial computed tomography images were obtained of the lumbar spine without the use of intravenous contrast. Coronal and sagittal reformatted images were created and reviewed. Radiation dose: Total exam DLP = 1900.11 mGy-cm. This CT exam was performed using one or more of the following dose reduction techniques: Automated exposure control, adjustment of the mA and/or kV according to patient size, and/or use of iterative reconstruction technique. FINDINGS: VERTEBRAE: There is mild dextroscoliosis in the lumbar spine. There is degenerative 7 mm retrolisthesis of L3 on L4. There is diffuse bone demineralization. No acute fracture. The sacrococcygeal angulation is normal. There is erosion in the posterior cortex of the 1st coccygeal segment, the 2nd coccygeal segment appears eroded and there is also erosion of the anterior aspect of the 3rd coccygeal segment. DISCS/SPINAL CANAL/NEURAL FORAMINA: Evaluation of the discs and spinal canal is limited on noncontrast CT examination. There is desiccation of the L2-3 and L3-4 discs with vacuum phenomena there is multilevel degenerative disc disease due to combination of osteophytes, disc bulges and multilevel facet arthropathy with variable degree of neural foraminal narrowing without spinal canal stenosis. PARASPINAL SOFT TISSUES: The paraspinous soft tissues are normal. There is a large midline soft tissue defect overlying the lower sacrum and coccyx extending to the coccygeal segments. OTHER FINDINGS: There is an indwelling Baxter catheter with partial decompression of the urinary bladder. Large amount of stool in the colon and fecal stasis in the rectum. 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 No acute fracture. Additional comments as described above.
--- NOTE | 2018-08-13 17:25 | CP.PCM.PN ---
Subjective - Date & Time of Evaluation Date of Evaluation: 08/12/18 Time of Evaluation: 19:50 - Subjective Subjective: Procedure Note for Dr. Denise PROCEDURE DATE: 08/12/18 PRE-OP DIAGNOSIS: Stage 4 sacral decubitus ulcer POST-OP DIAGNOSIS: Same PROCEDURE: Excisional debridement of sacral decubitus ulcer Performing Physician: Dorian Anaya D.O Consent was obtained. A timeout protocol was performed prior to initiating the procedure. The sacral wound area was prepared and draped in the usual, sterile manner. Area was prepped with Betadine. Excision of devitalized tissue was done with scissors and forceps. Bleeding was minimal. Packin*4 gauze soaked in Dakin's Dressing with ABD pads Followup: The patient tolerated the procedure well without complications. Standard post-procedure care is explained. Objective - Vital Signs/Intake and Output Vital Signs (last 24 hours): Temp Pulse Resp BP Pulse Ox 97.7 F 75 19 109/59 L 95 08/13/18 16:00 08/13/18 16:00 08/13/18 16:00 08/13/18 16:00 08/13/18 16:00 Intake and Output: 08/13/18 08/13/18 06:59 18:59 Intake Total 2235 Output Total 600 Balance 1635 - Medications Medications: Current Medications Acetaminophen (Tylenol 325mg Tab) 650 mg PEG Q6 PRN PRN Reason: Temperature 101 F and above Albuterol/Ipratropium (Duoneb 3 Mg/0.5 Mg (3 Ml) Ud) 3 ml INH RQ6 PRN PRN Reason: Shortness of Breath Artificial Tears (Artificial Tears) 1 drop OU BID [facility] Last Admin: 08/13/18 16:12 Dose: 1 drop Ascorbic Acid (Vitamin C 500 Mg Tab) 500 mg PEG DAILY [facility] Last Admin: 08/13/18 08:36 Dose: 500 mg Bisacodyl (Dulcolax) 10 mg RC DAILY PRN PRN Reason: if no BM adrienne 3 days Carbidopa/Levodopa (Sinemet) 1.5 tab PEG QID [facility] Last Admin: 08/13/18 16:13 Dose: 1.5 tab Doxazosin Mesylate (Cardura) 4 mg PEG DAILY [facility] Last Admin: 08/13/18 08:36 Dose: 4 mg Entacapone (Comtan) 200 mg PEG QID [facility] Last Admin: 08/13/18 16:12 Dose: 200 mg Finasteride (Proscar) 5 mg PEG DAILY [facility] Last Admin: 08/13/18 08:37 Dose: 5 mg Heparin Sodium (Porcine) (Heparin) 5,000 units SC Q8 [facility]; Protocol Last Admin: 08/13/18 16:12 Dose: 5,000 units Home Med (Pramipexole Di-Hcl [Mirapex Er]) 0.5 mg PEG TID [facility] Last Admin: 08/13/18 16:12 Dose: 0.5 mg Home Med (Rasagiline Mesylate [Azilect]) 1 mg PEG DAILY [facility] Last Admin: 08/13/18 08:36 Dose: 1 mg Meropenem 1 gm/ Sodium (Chloride) 100 mls @ 100 mls/hr IVPB Q8 [facility]; Protocol Last Admin: 08/13/18 16:11 Dose: 100 mls/hr Vancomycin HCl 1 gm/ Sodium (Chloride) 250 mls @ 166.667 mls/hr IVPB Q12H [facility]; Protocol Last Admin: 08/13/18 15:21 Dose: 166.667 mls/hr Dextrose (Dextrose 5% In Water 1000 Ml) 1,000 mls @ 100 mls/hr IV .Q10H [facility] Stop: 08/13/18 23:22 Last Admin: 08/13/18 12:10 Dose: 100 mls/hr Metoprolol Tartrate (Lopressor) 25 mg PEG BID [facility] Last Admin: 08/13/18 16:12 Dose: Not Given Pantoprazole Sodium (Protonix Inj) 40 mg IVP DAILY [facility] Last Admin: 08/13/18 08:37 Dose: 40 mg Scopolamine (Transderm-Scop) 1 patch TD Q72 [facility] Last Admin: 08/12/18 16:51 Dose: 1 patch Sodium Hypochlorite (Dakins Solution 0.5%) 0 ml TOP DAILY [facility] Last Admin: 08/13/18 08:39 Dose: Not Given Sodium Hypochlorite (Dakins Solution 0.25%) 0 ml TOP DAILY [facility] Last Admin: 08/13/18 08:39 Dose: 1 applic Zinc Sulfate (Zinc Sulfate 220 Mg Cap) 220 mg PEG DAILY [facility] Last Admin: 08/13/18 08:38 Dose: 220 mg - Labs Labs: 08/13/18 05:30 08/13/18 05:30 PT 15.2 Seconds (9.8-13.1) H 08/12/18 01:03 INR 1.3 08/12/18 01:03 APTT 35.3 Seconds (25.6-37.1) 08/12/18 01:03 - Constitutional Appears: Cachectic, Chronically Ill - Head Exam Head Exam: ATRAUMATIC, NORMAL INSPECTION, NORMOCEPHALIC - Eye Exam Eye Exam: EOMI - ENT Exam ENT Exam: Mucous Membranes Dry - Respiratory Exam Respiratory Exam: NORMAL BREATHING PATTERN. absent: Respiratory Distress - Neurological Exam Neurological Exam: Alert, Awake - Skin Additional comments: Chronic stage 4 decubitus ulcer - debrided with no bleeding encountered Assessment and Plan - Assessment and Plan (Free Text) Assessment: 88M w/ chronic stage 4 sacral decubitus ulcer Plan: Wound debrided of devitalized tissue Patient tolerated procedure without complication Packing w/ gauze and Dakins solution Continue local wound care Further recommendations per Dr. Howie Anaya PGY1
--- NOTE | 2018-08-13 20:58 | CP.PCM.PN ---
Subjective - Date & Time of Evaluation Date of Evaluation: 08/13/18 Time of Evaluation: 14:55 Objective - Vital Signs/Intake and Output Vital Signs (last 24 hours): Temp Pulse Resp BP Pulse Ox 97.7 F 75 19 109/59 L 95 08/13/18 16:00 08/13/18 16:00 08/13/18 16:00 08/13/18 16:00 08/13/18 16:00 Intake and Output: 08/13/18 08/14/18 18:59 06:59 Intake Total 2235 Output Total 600 Balance 1635 - Medications Medications: Current Medications Acetaminophen (Tylenol 325mg Tab) 650 mg PEG Q6 PRN PRN Reason: Temperature 101 F and above Albuterol/Ipratropium (Duoneb 3 Mg/0.5 Mg (3 Ml) Ud) 3 ml INH RQ6 PRN PRN Reason: Shortness of Breath Artificial Tears (Artificial Tears) 1 drop OU BID [facility] Last Admin: 08/13/18 16:12 Dose: 1 drop Ascorbic Acid (Vitamin C 500 Mg Tab) 500 mg PEG DAILY [facility] Last Admin: 08/13/18 08:36 Dose: 500 mg Bisacodyl (Dulcolax) 10 mg RC DAILY PRN PRN Reason: if no BM adrienne 3 days Carbidopa/Levodopa (Sinemet) 1.5 tab PEG QID [facility] Last Admin: 08/13/18 16:13 Dose: 1.5 tab Doxazosin Mesylate (Cardura) 4 mg PEG DAILY [facility] Last Admin: 08/13/18 08:36 Dose: 4 mg Entacapone (Comtan) 200 mg PEG QID [facility] Last Admin: 08/13/18 16:12 Dose: 200 mg Finasteride (Proscar) 5 mg PEG DAILY [facility] Last Admin: 08/13/18 08:37 Dose: 5 mg Heparin Sodium (Porcine) (Heparin) 5,000 units SC Q8 [facility]; Protocol Last Admin: 08/13/18 16:12 Dose: 5,000 units Home Med (Pramipexole Di-Hcl [Mirapex Er]) 0.5 mg PEG TID [facility] Last Admin: 08/13/18 16:12 Dose: 0.5 mg Home Med (Rasagiline Mesylate [Azilect]) 1 mg PEG DAILY [facility] Last Admin: 08/13/18 08:36 Dose: 1 mg Meropenem 1 gm/ Sodium (Chloride) 100 mls @ 100 mls/hr IVPB Q8 [facility]; Protocol Last Admin: 08/13/18 16:11 Dose: 100 mls/hr Vancomycin HCl 1 gm/ Sodium (Chloride) 250 mls @ 166.667 mls/hr IVPB Q12H [facility]; Protocol Last Admin: 08/13/18 15:21 Dose: 166.667 mls/hr Dextrose (Dextrose 5% In Water 1000 Ml) 1,000 mls @ 100 mls/hr IV .Q10H [facility] Stop: 08/13/18 23:22 Last Admin: 08/13/18 12:10 Dose: 100 mls/hr Metoprolol Tartrate (Lopressor) 25 mg PEG BID [facility] Last Admin: 08/13/18 16:12 Dose: Not Given Pantoprazole Sodium (Protonix Inj) 40 mg IVP DAILY [facility] Last Admin: 08/13/18 08:37 Dose: 40 mg Scopolamine (Transderm-Scop) 1 patch TD Q72 [facility] Last Admin: 08/12/18 16:51 Dose: 1 patch Sodium Hypochlorite (Dakins Solution 0.5%) 0 ml TOP DAILY [facility] Last Admin: 08/13/18 08:39 Dose: Not Given Sodium Hypochlorite (Dakins Solution 0.25%) 0 ml TOP DAILY [facility] Last Admin: 08/13/18 08:39 Dose: 1 applic Zinc Sulfate (Zinc Sulfate 220 Mg Cap) 220 mg PEG DAILY [facility] Last Admin: 08/13/18 08:38 Dose: 220 mg - Labs Labs: 08/13/18 05:30 08/13/18 05:30 PT 15.2 Seconds (9.8-13.1) H 08/12/18 01:03 INR 1.3 08/12/18 01:03 APTT 35.3 Seconds (25.6-37.1) 08/12/18 01:03
[2018-08-14] MEDS: Meropenem 1 GM in Sodium Chloride 0.9% 100 ML IVPB SCH ×3 (01:00→16:45)
[2018-08-14 06:34] LABS: BASO # 0.1 K/uL (0.0-0.2); EOS # 0.1 K/uL (0.0-0.7); EOS % 1.1 % (0.0-4.0); HEMOGLOBIN 7.9 g/dL (12.0-18.0); LYMPH # 0.7 K/uL (1.0-4.3); LYMPH % 11.9 % (20.0-40.0); MEAN CORPUSCULAR HEMOGLOBIN 29.6 pg (27.0-31.0); MEAN CORPUSCULAR HGB CONC 31.5 g/dL (33.0-37.0); MEAN PLATELET VOLUME 8.7 fl (7.2-11.7); MONO # 0.3 K/uL (0.0-0.8); NEUT # 4.9 K/uL (1.8-7.0); NRBC % 0.1 % (0.0-0.0); RBC 2.66 Mil/uL (4.40-5.90); RED CELL DISTRIBUTION WIDTH 17.6 % (11.5-14.5)
[2018-08-14 06:41] LABS: ALB/GLOB RATIO 0.6 (1.0-2.1); ALBUMIN 2.1 g/dL (3.5-5.0); ALT/SGPT 24 U/L (21-72); AST/SGOT 21 U/L (17-59); BLOOD UREA NITROGEN 28 mg/dl (9-20); CALCIUM 7.6 mg/dL (8.4-10.2); GFR NON-AFRICAN AMERICAN > 60
[2018-08-14] MEDS: Artificial Tears Opht Soln OU SCH ×2 (08:39→16:41)
[2018-08-14] MEDS: Dakin's Topical 0.5%-Full Strength (480 ml) TOP SCH (08:42)
[2018-08-14] MEDS: Dakin's Topical 0.25%-Half Strength (480 ml) TOP SCH (08:42)
[2018-08-14] MEDS: PRAMIPEXOLE DI HCL 0.5 MG PEG SCH ×3 (08:44→16:40)
[2018-08-14] MEDS: RASAGILINE MESYLATE 1 MG PEG SCH (08:47)
--- NOTE | 2018-08-14 10:01 | CP.PCM.CON ---
History of Present Illness - History of Present Illness History of Present Illness: 88 year old male, presents with a stage 4 sacral decubitus ulcer. referred for ID eval of possible sepsis secondary to recurrent UTI, decubitus PMH: Parkinson's and dementia, PSH: unknown FH: noncontributory SH: denies t/a/d ALL: NKDA Review of Systems - Review of Systems Systems not reviewed;Unavailable: Altered Mental Status All systems: reviewed and no additional remarkable complaints except - Constitutional Constitutional: absent: As Per HPI, Anorexia, Chills, Daytime Sleepiness, Excessive Sweating, Fatigue, Fever, Frequent Falls, Headache, Increased Appetite, Lethargy, Malaise, Night Sweats, Snoring, Sleep Apnea, Weight Gain, Weight Loss, Weakness, Other - EENT Eyes: absent: As Per HPI, Blind Spots, Blurred Vision, Change in Vision, Decreased Night Vision, Diplopia, Discharge, Dry Eye, Exophthalmos, Floaters, Irritation, Itchy Eyes, Loss of Peripheral Vision, Pain, Photophobia, Requires Corrective Lenses, Sees Flashes, Spots in Vision, Tunnel Vision, Other Visual Disturbances, Loss of Vision, Other Ears: absent: As Per HPI, Decreased Hearing, Ear Discharge, Ear Pain, Tinnitus, Abnormal Hearing, Disequilibrium, Dizziness, Other Nose/Mouth/Throat: absent: As Per HPI, Epistaxis, Nasal Congestion, Nasal Discharge, Nasal Obstruction, Nasal Trauma, Nose Pain, Post Nasal Drip, Sinus Pain, Sinus Pressure, Bleeding Gums, Change in Voice, Dental Pain, Dry Mouth, Dysphagia, Halitosis, Hoarsness, Lip Swelling, Mouth Lesions, Mouth Pain, Odynophagia, Sore Throat, Throat Swelling, Tongue Swelling, Facial Pain, Neck Pain, Neck Mass, Other - Cardiovascular Cardiovascular: absent: As Per HPI, Acrocyanosis, Chest Pain, Chest Pain at Rest, Chest Pain with Activity, Claudication, Diaphoresis, Dyspnea, Dyspnea on Exertion, Edema, Irregular Heart Rhythm, Pain Radiating to Arm/Neck/Jaw, Leg Edema, Leg Ulcers, Lightheadedness, Orthopnea, Palpitations, Paroxysmal Nocturnal Dyspnea, Pedal Edema, Radiating Pain, Rapid Heart Rate, Slow Heart Rate, Syncope, Other - Respiratory Respiratory: absent: As Per HPI, Cough, Dyspnea, Hemoptysis, Dyspnea on Exertion, Wheezing, Snoring, Stridor, Pain on Inspiration, Chest Congestion, Excessive Mucous Production, Change in Mucous Color, Pain with Coughing, Other - Gastrointestinal Gastrointestinal: absent: As Per HPI, Abdominal Pain, Belching, Bloating, Change in Bowel Habits, Change in Stool Character, Coffee Ground Emesis, Constipation, Cramping, Diarrhea, Dyspepsia, Dysphagia, Early Satiety, Excessive Flatus, Fecal Incontinence, Heartburn, Hematemesis, Hematochezia, Loose Stools, Melena, Nausea, Odynophagia, Temesmus, Vomiting, Other - Genitourinary Genitourinary: absent: As Per HPI, Change in Urinary Stream, Difficulty Urinating, Dysuria, Flank Pain, Hematuria, Pyuria, Nocturia, Urinary Incontinence, Urinary Frequency, Urinary Hesitance, Urinary Urgency, Voiding Freq/Small Amts, Freq UTI, Hx Renal/Bladder Calculi, Hx /Renal Surgery, Bladder Distension, Other - Musculoskeletal Musculoskeletal: absent: As Per HPI, Abnormal Gait, Arthralgias, Atrophy, Back Pain, Deformity, Joint Swelling, Limited Range of Motion, Loss of Height, Muscle Cramps, Muscle Weakness, Myalgias, Neck Pain, Numbness, Radiating Pain into Limb, Stiffness, Tingling, Other Past Patient History - Tetanus Immunizations Tetanus Immunization: Unknown - Past Medical History & Family History Past Medical History?: Yes - Past Social History Smoking Status: Never Smoked - CARDIAC Hx Congestive Heart Failure: Yes Hx Hypertension: Yes (denies) - PULMONARY Hx Respiratory Disorders: Yes (COPD) - NEUROLOGICAL Hx Dementia: Yes Hx Parkinson's Disease: Yes Hx Seizures: No - HEENT Hx HEENT Problems: No - RENAL Hx Chronic Kidney Disease: No - ENDOCRINE/METABOLIC Hx Endocrine Disorders: No - HEMATOLOGICAL/ONCOLOGICAL Hx Human Immunodeficiency Virus (HIV): No - INTEGUMENTARY Hx Dermatological Problems: Yes Other/Comment: Unstageable ulcer to sacrum - MUSCULOSKELETAL/RHEUMATOLOGICAL Hx Musculoskeletal Disorders: Yes Hx Falls: Yes - GASTROINTESTINAL Hx Gastrointestinal Disorders: Yes Other/Comment: Incontinence - GENITOURINARY/GYNECOLOGICAL Hx Sexually Transmitted Disorders: No - PSYCHIATRIC Hx Depression: No - SURGICAL HISTORY Hx Surgeries: No (pt denies) - ANESTHESIA Hx Anesthesia: (UNKNOWN) Hx Anesthesia Reactions: (UNKNOWN) Hx Malignant Hyperthermia: (UNKNOWN) Has any member of the family had a problem w/ anesthesia?: (UNKNOWN) Meds Allergies/Adverse Reactions: Allergies Allergy/AdvReac Type Severity Reaction Status Date / Time No Known Allergies Allergy Verified 10/11/17 10:28 - Medications Medications: Current Medications Acetaminophen (Tylenol 325mg Tab) 650 mg PEG Q6 PRN PRN Reason: Temperature 101 F and above Albuterol/Ipratropium (Duoneb 3 Mg/0.5 Mg (3 Ml) Ud) 3 ml INH RQ6 PRN PRN Reason: Shortness of Breath Artificial Tears (Artificial Tears) 1 drop OU BID [facility] Last Admin: 08/14/18 08:39 Dose: 1 drop Ascorbic Acid (Vitamin C 500 Mg Tab) 500 mg PEG DAILY [facility] Last Admin: 08/14/18 08:48 Dose: 500 mg Bisacodyl (Dulcolax) 10 mg RC DAILY PRN PRN Reason: if no BM adrienne 3 days Carbidopa/Levodopa (Sinemet) 1.5 tab PEG QID [facility] Last Admin: 08/14/18 08:47 Dose: 1.5 tab Doxazosin Mesylate (Cardura) 4 mg PEG DAILY [facility] Last Admin: 08/14/18 08:52 Dose: 4 mg Entacapone (Comtan) 200 mg PEG QID [facility] Last Admin: 08/14/18 08:42 Dose: 200 mg Finasteride (Proscar) 5 mg PEG DAILY [facility] Last Admin: 08/14/18 08:44 Dose: 5 mg Heparin Sodium (Porcine) (Heparin) 5,000 units SC Q8 [facility]; Protocol Last Admin: 08/14/18 08:40 Dose: 5,000 units Home Med (Pramipexole Di-Hcl [Mirapex Er]) 0.5 mg PEG TID [facility] Last Admin: 08/14/18 08:44 Dose: 0.5 mg Home Med (Rasagiline Mesylate [Azilect]) 1 mg PEG DAILY [facility] Last Admin: 08/14/18 08:47 Dose: 1 mg Meropenem 1 gm/ Sodium (Chloride) 100 mls @ 100 mls/hr IVPB Q8 [facility]; Protocol Last Admin: 08/14/18 08:44 Dose: 100 mls/hr Vancomycin HCl 1 gm/ Sodium (Chloride) 250 mls @ 166.667 mls/hr IVPB Q12H [facility]; Protocol Last Admin: 08/14/18 03:06 Dose: 166.667 mls/hr Dextrose (Dextrose 5% In Water 1000 Ml) 1,000 mls @ 100 mls/hr IV .Q10H [facility] Stop: 08/14/18 23:39 Last Admin: 08/14/18 08:53 Dose: 100 mls/hr Metoprolol Tartrate (Lopressor) 25 mg PEG BID [facility] Last Admin: 08/14/18 08:43 Dose: 25 mg Pantoprazole Sodium (Protonix Inj) 40 mg IVP DAILY [facility] Last Admin: 08/14/18 08:45 Dose: 40 mg Scopolamine (Transderm-Scop) 1 patch TD Q72 [facility] Last Admin: 08/12/18 16:51 Dose: 1 patch Sodium Hypochlorite (Dakins Solution 0.5%) 0 ml TOP DAILY [facility] Last Admin: 08/14/18 08:42 Dose: Not Given Sodium Hypochlorite (Dakins Solution 0.25%) 0 ml TOP DAILY [facility] Last Admin: 08/14/18 08:42 Dose: 1 applic Zinc Sulfate (Zinc Sulfate 220 Mg Cap) 220 mg PEG DAILY [facility] Last Admin: 08/14/18 08:48 Dose: 220 mg Physical Exam - Constitutional Appears: No Acute Distress, Confused, Chronically Ill - Head Exam Head Exam: ATRAUMATIC, NORMOCEPHALIC - Eye Exam Eye Exam: absent: Conjunctival injection, EOMI, Normal appearance, Nystagmus, Periorbital swelling, Periorbital tenderness, PERRL, Scleral icterus Pupil Exam: absent: Fixed, Irregular, Miosis, Mydriatic, NORMAL ACCOMODATION, PERRL, Unequal - ENT Exam ENT Exam: Mucous Membranes Dry - Neck Exam Neck exam: Negative for: Lymphadenopathy - Respiratory Exam Respiratory Exam: Decreased Breath Sounds - Cardiovascular Exam Cardiovascular Exam: REGULAR RHYTHM, +S1, +S2 - GI/Abdominal Exam GI & Abdominal Exam: Diminished Bowel Sounds, Distended - Rectal Exam Rectal Exam: Deferred - Exam Exam: Scrotal Swelling - Extremities Exam Extremities exam: Positive for: pedal edema. Negative for: calf tenderness, pedal pulses present - Back Exam Back exam: absent: CVA tenderness (L), CVA tenderness (R) - Neurological Exam Neurological exam: Altered Results - Vital Signs Recent Vital Signs: Last Vital Signs Temp 98.9 F 08/14/18 08:16 Pulse 80 08/14/18 08:16 Resp 20 12/11/18 08:16 BP 101/57 L 08/14/18 08:16 Pulse Ox 98 08/14/18 08:16 - Labs Result Diagrams: 08/15/18 06:05 08/15/18 06:05 Labs: Laboratory Results - last 24 hr 08/12/18 08/14/18 08/14/18 03:52 06:05 06:05 WBC 6.0 RBC 2.66 L Hgb 7.9 L Hct 25.0 L MCV 94.0 MCH 29.6 MCHC 31.5 L RDW 17.6 H Plt Count 273 MPV 8.7 Neut % (Auto) 81.0 H Lymph % (Auto) 11.9 L [place] % (Auto) 5.0 Eos % (Auto) 1.1 Baso % (Auto) 1.0 Neut # (Auto) 4.9 Lymph # (Auto) 0.7 L [place] # (Auto) 0.3 Eos # (Auto) 0.1 Baso # (Auto) 0.1 pO2 27 L VBG pH 7.41 VBG pCO2 49 VBG HCO3 27.1 VBG Total CO2 32.6 H VBG O2 Sat (Calc) 49.9 VBG Base Excess 5.0 H VBG Potassium 3.7 Sodium 156.0 H 146 Chloride 119.0 H 118 H Glucose 119 H Lactate 1.2 FiO2 21.0 Potassium 3.9 Carbon Dioxide 28 Anion Gap 4 L BUN 28 H Creatinine 0.7 L Est GFR ( Amer) > 60 Est GFR (Non-Af Amer) > 60 Random Glucose 106 Calcium 7.6 L Total Bilirubin 0.5 AST 21 ALT 24 Alkaline Phosphatase 66 Total Protein 5.4 L Albumin 2.1 L Globulin 3.3 Albumin/Globulin Ratio 0.6 L Venous Blood Potassium 3.7 Assessment & Plan (1) Sepsis Status: Acute - Assessment and Plan (Free Text) Assessment: ESBL in urine Merrem added will follow
[2018-08-14 15:48] LABS: IRON 21 ug/dL (49-181)
[2018-08-14 15:57] LABS: % IRON SATURATION 17 % (20-55); TOTAL IRON BINDING CAPACITY 125 ug/dL (250-450)
[2018-08-14 22:37] LABS: FOLATE 5.3 ng/mL
[2018-08-15] MEDS: Meropenem 1 GM in Sodium Chloride 0.9% 100 ML IVPB SCH ×3 (00:17→16:58)
[2018-08-15 06:27] LABS: MEAN CELL VOLUME 94.9 fl (80.0-94.0); MEAN CORPUSCULAR HEMOGLOBIN 29.2 pg (27.0-31.0); MEAN CORPUSCULAR HGB CONC 30.8 g/dL (33.0-37.0); RBC 2.73 Mil/uL (4.40-5.90); WHITE BLOOD COUNT 6.3 K/uL (4.8-10.8)
[2018-08-15 07:05] LABS: ALB/GLOB RATIO 0.6 (1.0-2.1); ALBUMIN 2.1 g/dL (3.5-5.0); ALT/SGPT 20 U/L (21-72); AST/SGOT 20 U/L (17-59); BLOOD UREA NITROGEN 24 mg/dl (9-20); CALCIUM 7.5 mg/dL (8.4-10.2); GFR NON-AFRICAN AMERICAN > 60
[2018-08-15] MEDS: Artificial Tears Opht Soln OU SCH ×3 (09:57→16:55)
[2018-08-15] MEDS: PRAMIPEXOLE DI HCL 0.5 MG PEG SCH ×3 (10:10→16:57)
[2018-08-15] MEDS: RASAGILINE MESYLATE 1 MG PEG SCH (10:11)
[2018-08-15] MEDS: Dakin's Topical 0.25%-Half Strength (480 ml) TOP SCH (10:18)
[2018-08-15] MEDS: Dakin's Topical 0.5%-Full Strength (480 ml) TOP SCH (10:20)
--- NOTE | 2018-08-15 10:23 | PQF ---
PROVIDER RESPONSE TEXT: Peoples Catheter Related UTI REVIEWER QUERY TEXT: Clarification of Clinical Diagnostic Findings Please clarify if a straight UTI versus a Peoples catheter related UTI ? OR; Unable to determine OR: Other explanation of clinical finding Urine culture: E-Coli Admission order: Admitting diagnoses.: Hypernatremia, UTI ER note includes: peoples was replaced sterilly Awaiting H and P I.D. consult includes: with a stage 4 sacral decubitus ulcer. referred for ID eval of possible sepsis secondary to recurrent UTI, decubitus The patient's Clinical Indicators include: -- Query created by: Shaneka Gallardo on 08/15/2018 9:27 AM Electronically signed by: Hamilton Escalante MD 08/15/2018 10:20 AM
--- NOTE | 2018-08-15 10:23 | PQF ---
PROVIDER RESPONSE TEXT: Unable to Detrmine REVIEWER QUERY TEXT: Heart Failure Acuity and Type Hx of Congestive Heart Failure is documented in the Medical Record. Please document the type and acui ty versus No CHF: hx. 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 of CHF: Current dxs. are absent in the H and P at this time -cardura, lopressor , [id number] cannula The patient's Clinical Indicators include: -- Query created by: Shaneka Gallardo on 08/15/2018 9:20 AM Electronically signed by: Hamilton Escalante MD 08/15/2018 10:20 AM
--- NOTE | 2018-08-15 10:54 | CP.PCM.PN ---
Subjective - Date & Time of Evaluation Date of Evaluation: 08/14/18 Time of Evaluation: 18:35 - Subjective Subjective: Seen and examined at the bed side. S/P Debridment of the wound by Surgery, and waiting Wound Vac Placement. No fever or chills. Urine Culture grew ESBL+ E. coli again. Objective - Vital Signs/Intake and Output Vital Signs (last 24 hours): Temp Pulse Resp BP Pulse Ox 97.6 F 81 20 160/74 H 91 L 08/15/18 08:49 08/15/18 10:15 08/15/18 08:49 08/15/18 10:15 08/15/18 08:49 - Medications Medications: Current Medications Acetaminophen (Tylenol 325mg Tab) 650 mg PEG Q6 PRN PRN Reason: Temperature 101 F and above Last Admin: 08/14/18 23:17 Dose: 650 mg Albuterol/Ipratropium (Duoneb 3 Mg/0.5 Mg (3 Ml) Ud) 3 ml INH RQ6 PRN PRN Reason: Shortness of Breath Artificial Tears (Artificial Tears) 1 drop OU BID [facility] Last Admin: 08/15/18 10:17 Dose: 1 drop Ascorbic Acid (Vitamin C 500 Mg Tab) 500 mg PEG DAILY [facility] Last Admin: 08/15/18 10:13 Dose: 500 mg Bisacodyl (Dulcolax) 10 mg RC DAILY PRN PRN Reason: if no BM adrienne 3 days Carbidopa/Levodopa (Sinemet) 1.5 tab PEG QID [facility] Last Admin: 08/15/18 10:16 Dose: 1.5 tab Doxazosin Mesylate (Cardura) 4 mg PEG DAILY [facility] Last Admin: 08/15/18 09:59 Dose: 4 mg Entacapone (Comtan) 200 mg PEG QID [facility] Last Admin: 08/15/18 10:15 Dose: 200 mg Finasteride (Proscar) 5 mg PEG DAILY [facility] Last Admin: 08/15/18 10:10 Dose: 5 mg Heparin Sodium (Porcine) (Heparin) 5,000 units SC Q8 [facility]; Protocol Last Admin: 08/15/18 10:14 Dose: 5,000 units Home Med (Pramipexole Di-Hcl [Mirapex Er]) 0.5 mg PEG TID [facility] Last Admin: 08/15/18 10:10 Dose: 0.5 mg Home Med (Rasagiline Mesylate [Azilect]) 1 mg PEG DAILY [facility] Last Admin: 08/15/18 10:11 Dose: 1 mg Meropenem 1 gm/ Sodium (Chloride) 100 mls @ 100 mls/hr IVPB Q8 [facility]; Protocol Last Admin: 08/15/18 10:51 Dose: 100 mls/hr Vancomycin HCl 1 gm/ Sodium (Chloride) 250 mls @ 166.667 mls/hr IVPB Q12H [facility]; Protocol Last Admin: 08/15/18 02:47 Dose: 166.667 mls/hr Metoprolol Tartrate (Lopressor) 25 mg PEG BID [facility] Last Admin: 08/15/18 10:15 Dose: 25 mg Pantoprazole Sodium (Protonix Inj) 40 mg IVP DAILY [facility] Last Admin: 08/15/18 10:10 Dose: 40 mg Scopolamine (Transderm-Scop) 1 patch TD Q72 [facility] Last Admin: 08/15/18 10:12 Dose: 1 patch Sodium Hypochlorite (Dakins Solution 0.5%) 0 ml TOP DAILY [facility] Last Admin: 08/15/18 10:20 Dose: Not Given Sodium Hypochlorite (Dakins Solution 0.25%) 0 ml TOP DAILY [facility] Last Admin: 08/15/18 10:18 Dose: 1 applic Zinc Sulfate (Zinc Sulfate 220 Mg Cap) 220 mg PEG DAILY [facility] Last Admin: 08/15/18 10:13 Dose: 220 mg - Labs Labs: 08/15/18 06:05 08/15/18 06:05 PT 15.2 Seconds (9.8-13.1) H 08/12/18 01:03 INR 1.3 08/12/18 01:03 APTT 35.3 Seconds (25.6-37.1) 08/12/18 01:03 - Cardiovascular Exam Cardiovascular Exam: +S1, +S2 - GI/Abdominal Exam GI & Abdominal Exam: Normal Bowel Sounds Additional comments: PEG tube - Back Exam Additional comments: Large stage IV Pressure Ulcer with exposed bone. Assessment and Plan (1) Altered mental state Status: Acute (2) Hypernatremia Status: Acute (3) Dementia Status: Chronic (4) Parkinsonian syndrome Status: Chronic (5) UTI due to extended-spectrum beta lactamase (ESBL) producing Escherichia coli Status: Acute (6) Stage IV pressure ulcer of sacral region Status: Acute (7) Osteomyelitis of low back Status: Acute - Assessment and Plan (Free Text) Plan: IVF D5W Free Water Flush PEG Feeding @35cc/hr, and Increase by 10cc/hr every 6hrs to targert 60cc/hrC/W IV C/w IV Vancomycin and IV Merem (Will need 6-8weeks of IV Abx Wound Care Nurse, ID and Surgery Consult Blood, Wound and Urine Cultures Monitor CBC and BMP ESR PICC Line placement
--- NOTE | 2018-08-15 13:17 | CP.PCM.PN ---
Subjective - Date & Time of Evaluation Date of Evaluation: 08/15/18 Time of Evaluation: 09:00 - Subjective Subjective: events noted lethargic afeb Objective - Vital Signs/Intake and Output Vital Signs (last 24 hours): Temp Pulse Resp BP Pulse Ox 97.6 F 81 20 160/74 H 91 L 08/15/18 08:49 08/15/18 10:15 08/15/18 08:49 08/15/18 10:15 08/15/18 08:49 - Medications Medications: Current Medications Acetaminophen (Tylenol 325mg Tab) 650 mg PEG Q6 PRN PRN Reason: Temperature 101 F and above Last Admin: 08/14/18 23:17 Dose: 650 mg Albuterol/Ipratropium (Duoneb 3 Mg/0.5 Mg (3 Ml) Ud) 3 ml INH RQ6 PRN PRN Reason: Shortness of Breath Artificial Tears (Artificial Tears) 1 drop OU BID [facility] Last Admin: 08/15/18 10:17 Dose: 1 drop Ascorbic Acid (Vitamin C 500 Mg Tab) 500 mg PEG DAILY [facility] Last Admin: 08/15/18 10:13 Dose: 500 mg Bisacodyl (Dulcolax) 10 mg RC DAILY PRN PRN Reason: if no BM adrienne 3 days Carbidopa/Levodopa (Sinemet) 1.5 tab PEG QID [facility] Last Admin: 08/15/18 10:16 Dose: 1.5 tab Doxazosin Mesylate (Cardura) 4 mg PEG DAILY [facility] Last Admin: 08/15/18 09:59 Dose: 4 mg Entacapone (Comtan) 200 mg PEG QID [facility] Last Admin: 08/15/18 10:15 Dose: 200 mg Finasteride (Proscar) 5 mg PEG DAILY [facility] Last Admin: 08/15/18 10:10 Dose: 5 mg Heparin Sodium (Porcine) (Heparin) 5,000 units SC Q8 [facility]; Protocol Last Admin: 08/15/18 10:14 Dose: 5,000 units Home Med (Pramipexole Di-Hcl [Mirapex Er]) 0.5 mg PEG TID [facility] Last Admin: 08/15/18 10:10 Dose: 0.5 mg Home Med (Rasagiline Mesylate [Azilect]) 1 mg PEG DAILY [facility] Last Admin: 08/15/18 10:11 Dose: 1 mg Meropenem 1 gm/ Sodium (Chloride) 100 mls @ 100 mls/hr IVPB Q8 [facility]; Protocol Last Admin: 08/15/18 10:51 Dose: 100 mls/hr Vancomycin HCl 1 gm/ Sodium (Chloride) 250 mls @ 166.667 mls/hr IVPB Q12H [facility]; Protocol Last Admin: 08/15/18 02:47 Dose: 166.667 mls/hr Metoprolol Tartrate (Lopressor) 25 mg PEG BID [facility] Last Admin: 08/15/18 10:15 Dose: 25 mg Pantoprazole Sodium (Protonix Inj) 40 mg IVP DAILY [facility] Last Admin: 08/15/18 10:10 Dose: 40 mg Scopolamine (Transderm-Scop) 1 patch TD Q72 [facility] Last Admin: 08/15/18 10:12 Dose: 1 patch Sodium Hypochlorite (Dakins Solution 0.5%) 0 ml TOP DAILY [facility] Last Admin: 08/15/18 10:20 Dose: Not Given Sodium Hypochlorite (Dakins Solution 0.25%) 0 ml TOP DAILY [facility] Last Admin: 08/15/18 10:18 Dose: 1 applic Zinc Sulfate (Zinc Sulfate 220 Mg Cap) 220 mg PEG DAILY [facility] Last Admin: 08/15/18 10:13 Dose: 220 mg - Labs Labs: 08/15/18 06:05 08/15/18 06:05 PT 15.2 Seconds (9.8-13.1) H 08/12/18 01:03 INR 1.3 08/12/18 01:03 APTT 35.3 Seconds (25.6-37.1) 08/12/18 01:03 - Constitutional Appears: Non-toxic, Confused, Cachectic, Chronically Ill - Head Exam Head Exam: ATRAUMATIC, NORMAL INSPECTION, NORMOCEPHALIC - Eye Exam Eye Exam: PERRL. absent: Scleral icterus - ENT Exam ENT Exam: Mucous Membranes Dry - Neck Exam Neck Exam: absent: Lymphadenopathy, Thyromegaly - Respiratory Exam Respiratory Exam: Decreased Breath Sounds, Clear to Ausculation Bilateral - Cardiovascular Exam Cardiovascular Exam: REGULAR RHYTHM, +S1, +S2 - GI/Abdominal Exam GI & Abdominal Exam: Distended, Soft. absent: Tenderness - Rectal Exam Rectal Exam: Deferred - Exam Exam: NORMAL INSPECTION - Extremities Exam Extremities Exam: absent: Pedal Edema - Back Exam Back Exam: absent: CVA tenderness (L), CVA tenderness (R) - Neurological Exam Neurological Exam: Altered, Motor Sensory Deficit. absent: Oriented x3 - Psychiatric Exam Psychiatric exam: Depressed - Skin Skin Exam: Dry - Additional Findings Additional findings: stage IV sacrum vac in place Assessment and Plan (1) Sepsis Status: Acute (2) Osteomyelitis of low back Status: Acute (3) Stage IV pressure ulcer of sacral region Status: Acute (4) UTI due to extended-spectrum beta lactamase (ESBL) producing Escherichia coli Status: Acute - Assessment and Plan (Free Text) Assessment: cont vanco merrem for 6- 8 weeks may need debridement in OR poor prognosis
--- NOTE | 2018-08-15 14:23 | CP.PCM.PCO ---
Physician Communication Note - Physician Communication Note Physician Communication Note: Pt has OM, needs IV abx for [address] Terry and Seman
[2018-08-15] MEDS: Fluconazole IV 200mg/100 ml NS 100 ML IVPB SCH (16:53)
--- NOTE | 2018-08-15 22:45 | CP.PCM.PCO ---
Physician Communication Note - Physician Communication Note Physician Communication Note: Wound vac placed today. Cont, 125. Further mgmt per wound care team.
[2018-08-16] MEDS: Meropenem 1 GM in Sodium Chloride 0.9% 100 ML IVPB SCH ×3 (01:35→16:52)
[2018-08-16] MEDS: Artificial Tears Opht Soln OU SCH ×2 (09:21→16:44)
[2018-08-16] MEDS: Dakin's Topical 0.25%-Half Strength (480 ml) TOP SCH (09:23)
[2018-08-16] MEDS: Fluconazole IV 200mg/100 ml NS 100 ML IVPB SCH (09:24)
[2018-08-16] MEDS: Dakin's Topical 0.5%-Full Strength (480 ml) TOP SCH (09:24)
[2018-08-16] MEDS: PRAMIPEXOLE DI HCL 0.5 MG PEG SCH ×3 (09:28→16:46)
[2018-08-16] MEDS: RASAGILINE MESYLATE 1 MG PEG SCH (09:29)
[2018-08-16] MEDS: Albuterol-Ipratrop 3 mg / 0.5 (3 ml) UD INH PRN ×2 (10:27→17:39)
--- NOTE | 2018-08-16 11:00 | RAD ---
Date of service: 08/16/2018 HISTORY: congestion COMPARISON: Portable chest 08/12/2018. FINDINGS: LUNGS: Limited diaphragm is completely silhouetted suggesting atelectasis or infiltrate at the left base in the interval. Right chest remains clear. PLEURA: No pneumothorax bilaterally. No right pleural effusion. Limited left pleural effusion not excluded. CARDIOVASCULAR: Calcific atherosclerotic changes are seen related to the thoracic aorta. Stable cardiomegaly. No pulmonary vascular congestion. OSSEOUS STRUCTURES: No significant abnormalities. VISUALIZED UPPER ABDOMEN: Normal. OTHER FINDINGS: Right PICC identified inserted terminating at the distal superior vena cava. IMPRESSION: Left basilar atelectasis or infiltrate noted in the interval at the base. Trace of pleural effusion not excluded. Stable cardiomegaly.
--- NOTE | 2018-08-16 23:06 | CP.PCM.PN ---
Subjective - Date & Time of Evaluation Date of Evaluation: 08/15/18 Time of Evaluation: 19:25 Objective - Vital Signs/Intake and Output Vital Signs (last 24 hours): Temp Pulse Resp BP Pulse Ox 98.9 F 84 18 99/52 L 99 08/16/18 16:34 08/16/18 16:34 08/16/18 16:34 08/16/18 16:34 08/16/18 16:34 - Medications Medications: Current Medications Acetaminophen (Tylenol 325mg Tab) 650 mg PEG Q6 PRN PRN Reason: Temperature 101 F and above Last Admin: 08/14/18 23:17 Dose: 650 mg Albuterol/Ipratropium (Duoneb 3 Mg/0.5 Mg (3 Ml) Ud) 3 ml INH RQ6 PRN PRN Reason: Shortness of Breath Last Admin: 08/16/18 17:39 Dose: 3 ml Artificial Tears (Artificial Tears) 1 drop OU BID [facility] Last Admin: 08/16/18 16:44 Dose: 1 drop Ascorbic Acid (Vitamin C 500 Mg Tab) 500 mg PEG DAILY [facility] Last Admin: 08/16/18 09:30 Dose: 500 mg Bisacodyl (Dulcolax) 10 mg RC DAILY PRN PRN Reason: if no BM adrienne 3 days Carbidopa/Levodopa (Sinemet) 1.5 tab PEG QID [facility] Last Admin: 08/16/18 21:39 Dose: 1.5 tab Doxazosin Mesylate (Cardura) 4 mg PEG DAILY [facility] Last Admin: 08/16/18 09:22 Dose: Not Given Entacapone (Comtan) 200 mg PEG QID [facility] Last Admin: 08/16/18 21:38 Dose: 200 mg Finasteride (Proscar) 5 mg PEG DAILY [facility] Last Admin: 08/16/18 09:28 Dose: 5 mg Heparin Sodium (Porcine) (Heparin) 5,000 units SC Q8 [facility]; Protocol Last Admin: 08/16/18 16:45 Dose: 5,000 units Home Med (Pramipexole Di-Hcl [Mirapex Er]) 0.5 mg PEG TID [facility] Last Admin: 08/16/18 16:46 Dose: 0.5 mg Home Med (Rasagiline Mesylate [Azilect]) 1 mg PEG DAILY [facility] Last Admin: 08/16/18 09:29 Dose: 1 mg Meropenem 1 gm/ Sodium (Chloride) 100 mls @ 100 mls/hr IVPB Q8 [facility]; Protocol Last Admin: 08/16/18 16:52 Dose: 100 mls/hr Vancomycin HCl 1 gm/ Sodium (Chloride) 250 mls @ 166.667 mls/hr IVPB Q12H [facility]; Protocol Last Admin: 08/16/18 14:20 Dose: 166.667 mls/hr Fluconazole (Diflucan Iv 200 Mg/100 Ml Ns) 100 mls @ 100 mls/hr IVPB DAILY [facility]; Protocol Last Admin: 08/16/18 09:24 Dose: 100 mls/hr Metoprolol Tartrate (Lopressor) 25 mg PEG BID [facility] Last Admin: 08/16/18 16:46 Dose: Not Given Pantoprazole Sodium (Protonix Inj) 40 mg IVP DAILY [facility] Last Admin: 08/16/18 09:28 Dose: 40 mg Scopolamine (Transderm-Scop) 1 patch TD Q72 [facility] Last Admin: 08/15/18 10:12 Dose: 1 patch Sodium Hypochlorite (Dakins Solution 0.5%) 0 ml TOP DAILY [facility] Last Admin: 08/16/18 09:24 Dose: Not Given Sodium Hypochlorite (Dakins Solution 0.25%) 0 ml TOP DAILY [facility] Last Admin: 08/16/18 09:23 Dose: 1 applic Zinc Sulfate (Zinc Sulfate 220 Mg Cap) 220 mg PEG DAILY [facility] Last Admin: 08/16/18 09:30 Dose: 220 mg - Labs Labs: 08/15/18 06:05 08/15/18 06:05 PT 15.2 Seconds (9.8-13.1) H 08/12/18 01:03 INR 1.3 08/12/18 01:03 APTT 35.3 Seconds (25.6-37.1) 08/12/18 01:03 Assessment and Plan (1) Altered mental state Status: Acute (2) Hypernatremia Status: Acute (3) Dementia Status: Chronic (4) Parkinsonian syndrome Status: Chronic (5) UTI due to extended-spectrum beta lactamase (ESBL) producing Escherichia coli Status: Acute (6) Stage IV pressure ulcer of sacral region Status: Acute (7) Osteomyelitis of low back Status: Acute
--- NOTE | 2018-08-16 23:07 | CP.PCM.PN ---
Subjective - Date & Time of Evaluation Date of Evaluation: 08/16/18 Time of Evaluation: 21:15 - Subjective Subjective: Seen and examined at the bed side. Awake and alert, and attempting to converse. On Wound vacuum. No fever or chills. Objective - Vital Signs/Intake and Output Vital Signs (last 24 hours): Temp Pulse Resp BP Pulse Ox 98.9 F 84 18 99/52 L 99 08/16/18 16:34 08/16/18 16:34 08/16/18 16:34 08/16/18 16:34 08/16/18 16:34 - Medications Medications: Current Medications Acetaminophen (Tylenol 325mg Tab) 650 mg PEG Q6 PRN PRN Reason: Temperature 101 F and above Last Admin: 08/14/18 23:17 Dose: 650 mg Albuterol/Ipratropium (Duoneb 3 Mg/0.5 Mg (3 Ml) Ud) 3 ml INH RQ6 PRN PRN Reason: Shortness of Breath Last Admin: 08/16/18 17:39 Dose: 3 ml Artificial Tears (Artificial Tears) 1 drop OU BID [facility] Last Admin: 08/16/18 16:44 Dose: 1 drop Ascorbic Acid (Vitamin C 500 Mg Tab) 500 mg PEG DAILY [facility] Last Admin: 08/16/18 09:30 Dose: 500 mg Bisacodyl (Dulcolax) 10 mg RC DAILY PRN PRN Reason: if no BM adrienne 3 days Carbidopa/Levodopa (Sinemet) 1.5 tab PEG QID [facility] Last Admin: 08/16/18 21:39 Dose: 1.5 tab Doxazosin Mesylate (Cardura) 4 mg PEG DAILY [facility] Last Admin: 08/16/18 09:22 Dose: Not Given Entacapone (Comtan) 200 mg PEG QID [facility] Last Admin: 08/16/18 21:38 Dose: 200 mg Finasteride (Proscar) 5 mg PEG DAILY [facility] Last Admin: 08/16/18 09:28 Dose: 5 mg Heparin Sodium (Porcine) (Heparin) 5,000 units SC Q8 [facility]; Protocol Last Admin: 08/16/18 16:45 Dose: 5,000 units Home Med (Pramipexole Di-Hcl [Mirapex Er]) 0.5 mg PEG TID [facility] Last Admin: 08/16/18 16:46 Dose: 0.5 mg Home Med (Rasagiline Mesylate [Azilect]) 1 mg PEG DAILY [facility] Last Admin: 08/16/18 09:29 Dose: 1 mg Meropenem 1 gm/ Sodium (Chloride) 100 mls @ 100 mls/hr IVPB Q8 [facility]; Protocol Last Admin: 08/16/18 16:52 Dose: 100 mls/hr Vancomycin HCl 1 gm/ Sodium (Chloride) 250 mls @ 166.667 mls/hr IVPB Q12H [facility]; Protocol Last Admin: 08/16/18 14:20 Dose: 166.667 mls/hr Fluconazole (Diflucan Iv 200 Mg/100 Ml Ns) 100 mls @ 100 mls/hr IVPB DAILY [facility]; Protocol Last Admin: 08/16/18 09:24 Dose: 100 mls/hr Metoprolol Tartrate (Lopressor) 25 mg PEG BID [facility] Last Admin: 08/16/18 16:46 Dose: Not Given Pantoprazole Sodium (Protonix Inj) 40 mg IVP DAILY [facility] Last Admin: 08/16/18 09:28 Dose: 40 mg Scopolamine (Transderm-Scop) 1 patch TD Q72 [facility] Last Admin: 08/15/18 10:12 Dose: 1 patch Sodium Hypochlorite (Dakins Solution 0.5%) 0 ml TOP DAILY [facility] Last Admin: 08/16/18 09:24 Dose: Not Given Sodium Hypochlorite (Dakins Solution 0.25%) 0 ml TOP DAILY [facility] Last Admin: 08/16/18 09:23 Dose: 1 applic Zinc Sulfate (Zinc Sulfate 220 Mg Cap) 220 mg PEG DAILY [facility] Last Admin: 08/16/18 09:30 Dose: 220 mg - Labs Labs: 08/15/18 06:05 08/15/18 06:05 PT 15.2 Seconds (9.8-13.1) H 08/12/18 01:03 INR 1.3 08/12/18 01:03 APTT 35.3 Seconds (25.6-37.1) 08/12/18 01:03 - Constitutional Appears: No Acute Distress, Cachectic - Head Exam Head Exam: ATRAUMATIC, NORMAL INSPECTION, NORMOCEPHALIC - Eye Exam Eye Exam: EOMI, Normal appearance, PERRL Pupil Exam: NORMAL ACCOMODATION, PERRL - ENT Exam ENT Exam: Mucous Membranes Moist, Normal Exam - Neck Exam Neck Exam: Full ROM, Normal Inspection. absent: Lymphadenopathy - Respiratory Exam Respiratory Exam: Clear to Ausculation Bilateral, NORMAL BREATHING PATTERN - Cardiovascular Exam Cardiovascular Exam: REGULAR RHYTHM, +S1, +S2. absent: Murmur - GI/Abdominal Exam GI & Abdominal Exam: Soft, Normal Bowel Sounds. absent: Tenderness - Exam Additional comments: Baxter Catheter in place. - Extremities Exam Extremities Exam: Normal Capillary Refill. absent: Joint Swelling, Pedal Edema Additional comments: Atrophy - Back Exam Additional comments: Wound Vacuum in place. - Neurological Exam Neurological Exam: Oriented x3 Additional comments: Bed bound. - Psychiatric Exam Psychiatric exam: Normal Affect, Normal Mood - Skin Additional comments: Stage IV Sacral Pressure Ulcer on Wound Vacuum. Assessment and Plan (1) Hypernatremia Status: Resolved (2) Osteomyelitis of low back Status: Acute (3) UTI due to extended-spectrum beta lactamase (ESBL) producing Escherichia coli Status: Acute (4) Stage IV pressure ulcer of sacral region Status: Acute (5) Altered mental state Status: Acute (6) Dementia Status: Chronic (7) Parkinsonian syndrome Status: Chronic - Assessment and Plan (Free Text) Plan: IVF D5W Free Water Flush PEG Feeding Jevity 60cc/hr C/W IVF C/w IV Vancomycin and IV Merem Wound Care Nurse, ID and Surgery onboard Urine Culture- ESBL+ Ecoli Monitor CBC and BMP Dietary Consult D/w patient's Daughter about POC, and Possible D/c tommorow on termite technician IV antibiotics Also Discussed about the Code status, and she wanted everything to be done. Tel#[phone].
[2018-08-17] MEDS: Meropenem 1 GM in Sodium Chloride 0.9% 100 ML IVPB SCH ×4 (00:05→18:08)
[2018-08-17] MEDS: Albuterol-Ipratrop 3 mg / 0.5 (3 ml) UD INH PRN ×2 (00:36→07:16)
[2018-08-17] MEDS: Artificial Tears Opht Soln OU SCH ×2 (10:26→17:24)
[2018-08-17] MEDS: Fluconazole IV 200mg/100 ml NS 100 ML IVPB SCH (10:28)
[2018-08-17] MEDS: Dakin's Topical 0.25%-Half Strength (480 ml) TOP SCH (10:28)
[2018-08-17] MEDS: Dakin's Topical 0.5%-Full Strength (480 ml) TOP SCH (10:28)
[2018-08-17] MEDS: PRAMIPEXOLE DI HCL 0.5 MG PEG SCH ×3 (10:30→17:25)
[2018-08-17] MEDS: RASAGILINE MESYLATE 1 MG PEG SCH (10:31)
--- NOTE | 2018-08-17 10:44 | VASCULAR ---
PROCEDURE: Date of procedure: 08/15/2018 Procedure: 1. Placement of a right arm PICC with ultrasound and fluoroscopic guidance, CPT 88311 2. PICC tip confirmation with spot radiograph and is in the superior vena cava Medications: 1 percent lidocaine Total Fluoro time: 6.6 Seconds Radiation: 0.88 MGy EBL: 2 cc HISTORY: Infection requiring long-term IV antibiotics TECHNIQUE: Following informed consent and procedure time-out, the patient was placed supine on the interventional table and the right arm prepped and draped in the usual sterile fashion. Ultrasound showed a patent and compressible right basilic vein. After the skin was anesthetized with lidocaine, the basilic vein was accessed with micro micropuncture technique using ultrasound guidance. A guidewire was then advanced under fluoroscopic guidance into the superior vena cava. An image documenting ultrasound guidance for vascular access was permanently saved. The length of the single-lumen 4 [place] PICC was trimmed to 37 centimeters and advanced through a peel-away sheath. The PICC was position with tip of PICC confirm a spot radiograph the superior vena cava. The PICC was secured to the patient's skin. The PICC was flushed. A biopatch and sterile dressing was applied. IMPRESSION: Placement of a single-lumen 4 [place] PICC trimmed to 37 centimeters via right basilic vein. The tip of the PICC is confirmed with spot radiograph and is in the superior vena cava.
[2018-08-17 11:40] LABS: HEMOGLOBIN 7.4 g/dL (12.0-18.0); MEAN CELL VOLUME 92.7 fl (80.0-94.0); MEAN CORPUSCULAR HEMOGLOBIN 29.3 pg (27.0-31.0); MEAN CORPUSCULAR HGB CONC 31.6 g/dL (33.0-37.0); RBC 2.54 Mil/uL (4.40-5.90); WHITE BLOOD COUNT 4.3 K/uL (4.8-10.8)
--- NOTE | 2018-08-17 12:00 | PQF ---
PROVIDER RESPONSE TEXT: Sepsis Ruled out as no Sepsis Criteria REVIEWER QUERY TEXT: Conflicting Documentation Clarification Sepsis is listed in the ID consult: if in agreement please include the etiology: etiologies: i.e due to peoples catheter related UTI, and or Decubitus etc. Please also document if the condition is: -- Confirmed and current -- Confirmed, treated and resolved -- Versus: Ruled out -- Other, please specify Pulse; 105->103->85->97->.92->.90 Respirations; 36->31->24->29-.>24-> 26-> 31 08/13 ID consult includes; 08/13: ID consult : with a stage 4 sacral decubitus ulcer. referred for ID evaluation of possible sepsis secondary to recurrent UTI, decubitus 08/15 ID progress note: (1) Sepsis Status: Acute (2) Osteomyelitis of low back Status: Acute (3) Stage IV pressure ulcer of sacral region Status: Acute (4) UTI due to extended-spectrum beta lactamase (ESBL) producing Escherichia coli Status: Acute cont vanco merrem for 6- 8 weeks may need debridement in OR The patient's Clinical Indicators include: -- Query created by: Shaneka Gallardo on 08/16/2018 10:05 AM Electronically signed by: Hamilton Escalante MD 08/17/2018 11:57 AM
[2018-08-17 12:04] LABS: BLOOD UREA NITROGEN 18 mg/dl (9-20); CALCIUM 7.7 mg/dL (8.4-10.2); GFR NON-AFRICAN AMERICAN > 60
--- NOTE | 2018-08-17 13:50 | CP.PCM.PN ---
Subjective - Date & Time of Evaluation Date of Evaluation: 08/17/18 Time of Evaluation: 09:00 - Subjective Subjective: afeb nad wound cvac in place Objective - Vital Signs/Intake and Output Vital Signs (last 24 hours): Temp Pulse Resp BP Pulse Ox 98 F 69 20 129/52 L 96 08/17/18 08:49 08/16/18 23:48 08/17/18 08:49 08/17/18 08:49 08/17/18 08:49 - Medications Medications: Current Medications Acetaminophen (Tylenol 325mg Tab) 650 mg PEG Q6 PRN PRN Reason: Temperature 101 F and above Last Admin: 08/14/18 23:17 Dose: 650 mg Albuterol/Ipratropium (Duoneb 3 Mg/0.5 Mg (3 Ml) Ud) 3 ml INH RQ6 PRN PRN Reason: Shortness of Breath Last Admin: 08/17/18 07:16 Dose: 3 ml Artificial Tears (Artificial Tears) 1 drop OU BID [facility] Last Admin: 08/17/18 10:26 Dose: 1 drop Ascorbic Acid (Vitamin C 500 Mg Tab) 500 mg PEG DAILY [facility] Last Admin: 08/17/18 10:32 Dose: 500 mg Bisacodyl (Dulcolax) 10 mg RC DAILY PRN PRN Reason: if no BM adrienne 3 days Carbidopa/Levodopa (Sinemet) 1.5 tab PEG QID [facility] Last Admin: 08/17/18 12:57 Dose: 1.5 tab Doxazosin Mesylate (Cardura) 4 mg PEG DAILY [facility] Last Admin: 08/17/18 10:27 Dose: 4 mg Entacapone (Comtan) 200 mg PEG QID [facility] Last Admin: 08/17/18 12:56 Dose: 200 mg Finasteride (Proscar) 5 mg PEG DAILY [facility] Last Admin: 08/17/18 10:30 Dose: 5 mg Heparin Sodium (Porcine) (Heparin) 5,000 units SC Q8 [facility]; Protocol Last Admin: 08/17/18 10:29 Dose: 5,000 units Home Med (Pramipexole Di-Hcl [Mirapex Er]) 0.5 mg PEG TID [facility] Last Admin: 08/17/18 12:57 Dose: 0.5 mg Home Med (Rasagiline Mesylate [Azilect]) 1 mg PEG DAILY [facility] Last Admin: 08/17/18 10:31 Dose: 1 mg Meropenem 1 gm/ Sodium (Chloride) 100 mls @ 100 mls/hr IVPB Q8 [facility]; Protocol Last Admin: 08/17/18 10:29 Dose: 100 mls/hr Vancomycin HCl 1 gm/ Sodium (Chloride) 250 mls @ 166.667 mls/hr IVPB Q12H [facility]; Protocol Last Admin: 08/17/18 02:26 Dose: 166.667 mls/hr Fluconazole (Diflucan Iv 200 Mg/100 Ml Ns) 100 mls @ 100 mls/hr IVPB DAILY [facility]; Protocol Last Admin: 08/17/18 10:28 Dose: 100 mls/hr Metoprolol Tartrate (Lopressor) 25 mg PEG BID [facility] Last Admin: 08/17/18 10:29 Dose: 25 mg Pantoprazole Sodium (Protonix Inj) 40 mg IVP DAILY [facility] Last Admin: 08/17/18 10:30 Dose: 40 mg Scopolamine (Transderm-Scop) 1 patch TD Q72 [facility] Last Admin: 08/15/18 10:12 Dose: 1 patch Sodium Hypochlorite (Dakins Solution 0.5%) 0 ml TOP DAILY [facility] Last Admin: 08/17/18 10:28 Dose: Not Given Sodium Hypochlorite (Dakins Solution 0.25%) 0 ml TOP DAILY [facility] Last Admin: 08/17/18 10:28 Dose: 1 applic Zinc Sulfate (Zinc Sulfate 220 Mg Cap) 220 mg PEG DAILY [facility] Last Admin: 08/17/18 10:32 Dose: 220 mg - Labs Labs: 08/17/18 10:52 08/17/18 10:52 PT 15.2 Seconds (9.8-13.1) H 08/12/18 01:03 INR 1.3 08/12/18 01:03 APTT 35.3 Seconds (25.6-37.1) 08/12/18 01:03 - Constitutional Appears: Non-toxic, Chronically Ill - Head Exam Head Exam: NORMOCEPHALIC - Eye Exam Eye Exam: absent: Scleral icterus - ENT Exam ENT Exam: Mucous Membranes Dry - Neck Exam Neck Exam: absent: Lymphadenopathy - Respiratory Exam Respiratory Exam: Decreased Breath Sounds - Cardiovascular Exam Cardiovascular Exam: REGULAR RHYTHM - GI/Abdominal Exam GI & Abdominal Exam: Distended, Soft - Rectal Exam Rectal Exam: Deferred - Exam Exam: NORMAL INSPECTION - Extremities Exam Extremities Exam: Pedal Edema - Back Exam Back Exam: absent: CVA tenderness (L), CVA tenderness (R), paraspinal tenderness - Neurological Exam Neurological Exam: Altered Assessment and Plan (1) Sepsis Status: Acute (2) Osteomyelitis of low back Status: Acute (3) Stage IV pressure ulcer of sacral region Status: Acute (4) UTI due to extended-spectrum beta lactamase (ESBL) producing Escherichia coli Status: Acute - Assessment and Plan (Free Text) Assessment: cont iv rx , wound care foir 6-8 weeks
[2018-08-17] MEDS: Lactated Ringer's 1,000 ML IV SCH (16:26)
[2018-08-18] MEDS: Meropenem 1 GM in Sodium Chloride 0.9% 100 ML IVPB SCH ×2 (00:53→09:02)
[2018-08-18] MEDS: Lactated Ringer's 1,000 ML IV SCH (03:00)
[2018-08-18 07:45] LABS: HEMOGLOBIN 8.2 g/dL (12.0-18.0); MEAN CELL VOLUME 90.3 fl (80.0-94.0); MEAN CORPUSCULAR HGB CONC 32.2 g/dL (33.0-37.0); RBC 2.81 Mil/uL (4.40-5.90); RED CELL DISTRIBUTION WIDTH 17.8 % (11.5-14.5); WHITE BLOOD COUNT 4.6 K/uL (4.8-10.8)
[2018-08-18 08:13] VITALS: BP 115/64; PULSE 84; RESP 20; TEMP 97.8; O2SAT 93
[2018-08-18] MEDS: Fluconazole IV 200mg/100 ml NS 100 ML IVPB SCH (08:46)
[2018-08-18] MEDS: Dakin's Topical 0.5%-Full Strength (480 ml) TOP SCH (08:48)
[2018-08-18] MEDS: Dakin's Topical 0.25%-Half Strength (480 ml) TOP SCH (08:48)
[2018-08-18] MEDS: Artificial Tears Opht Soln OU SCH (08:50)
[2018-08-18] MEDS: PRAMIPEXOLE DI HCL 0.5 MG PEG SCH ×2 (08:51→12:37)
[2018-08-18] MEDS: RASAGILINE MESYLATE 1 MG PEG SCH (08:51)
--- NOTE | 2018-08-18 17:54 | CP.PCM.PN ---
Subjective - Date & Time of Evaluation Date of Evaluation: 08/17/18 Time of Evaluation: 12:25 Objective - Vital Signs/Intake and Output Vital Signs (last 24 hours): Temp Pulse Resp BP Pulse Ox 97.8 F 84 20 115/64 93 L 08/18/18 08:13 08/18/18 08:13 08/18/18 08:13 08/18/18 08:13 08/18/18 08:13 Intake and Output: 08/18/18 08/18/18 06:59 18:59 Intake Total 1320 Output Total 1800 Balance -480 - Labs Labs: 08/18/18 07:42 08/17/18 10:52 PT 15.2 Seconds (9.8-13.1) H 08/12/18 01:03 INR 1.3 08/12/18 01:03 APTT 35.3 Seconds (25.6-37.1) 08/12/18 01:03 Assessment and Plan (1) Hypernatremia Status: Resolved (2) Osteomyelitis of low back Status: Acute (3) UTI due to extended-spectrum beta lactamase (ESBL) producing Escherichia coli Status: Acute (4) Stage IV pressure ulcer of sacral region Status: Acute (5) Altered mental state Status: Acute (6) Dementia Status: Chronic (7) Parkinsonian syndrome Status: Chronic
--- NOTE | 2018-08-18 17:55 | CP.PCM.DIS ---
Provider - Provider Date of Admission: 08/12/18 02:29 Attending physician: Hamilton Escalante MD Consults: 08/12/18 03:07 Wound Care [Nursing Referral for Wound Care] Routine Comment: Physician Instructions: Reason For Exam: sacral decubitus and multiple areas of excoration 08/12/18 07:16 Nursing Referral for Wound Care Routine Comment: Physician Instructions: Reason For Exam: sacral decubiti- unstageable Pastoral Care Referral Routine Comment: Physician Instructions: Reason For Exam: new admit 08/12/18 15:00 General Surgery Consult Routine Comment: Consulting Provider: José Manuel Denise Consulting Physician: José Manuel Denise Reason for Consult: Stage IV Sacral Wound 08/13/18 10:43 Infectious Disease Consult Routine Comment: Consulting Provider: Ashish Terry Consulting Physician: Ashish Terry Reason for Consult: Recurrent resistant uti, stage 4 sacral ulcer Time Spent in preparation of Discharge (in minutes): 25 Diagnosis - Discharge Diagnosis (1) Hypernatremia Status: Resolved Priority: High (2) Osteomyelitis of low back Status: Acute (3) UTI due to extended-spectrum beta lactamase (ESBL) producing Escherichia coli Status: Acute Priority: High (4) Stage IV pressure ulcer of sacral region Status: Acute (5) Altered mental state Status: Acute Priority: High (6) Dementia Status: Chronic Priority: High (7) Parkinsonian syndrome Status: Chronic Priority: High Hospital Course - Lab Results Lab Results: Micro Results 08/12/18 01:33 Blood Blood Culture - Final NO GROWTH AFTER 5 DAYS 08/12/18 01:33 Blood Gram Stain - Final TEST NOT PERFORMED 08/12/18 01:03 Blood Blood Culture - Final NO GROWTH AFTER 5 DAYS 08/12/18 01:03 Blood Gram Stain - Final TEST NOT PERFORMED 08/12/18 01:26 Urine,Baxter Urine Culture - Final Escherichia Coli Most Recent Lab Values WBC 4.6 K/uL (4.8-10.8) L 08/18/18 07:42 RBC 2.81 Mil/uL (4.40-5.90) L 08/18/18 07:42 Hgb 8.2 g/dL (12.0-18.0) L 08/18/18 07:42 Hct 25.4 % (35.0-51.0) L 08/18/18 07:42 MCV 90.3 fl (80.0-94.0) D 08/18/18 07:42 MCH 29.0 pg (27.0-31.0) 12 07:42 MCHC 32.2 g/dL (33.0-37.0) L 12 07:42 RDW 17.8 % (11.5-14.5) H 08/18/18 07:42 Plt Count 263 K/uL (130-400) 08/18/18 07:42 MPV 8.7 fl (7.2-11.7) 08/14/18 06:05 Neut % (Auto) 81.0 % (50.0-75.0) H 08/14/18 06:05 Lymph % (Auto) 11.9 % (20.0-40.0) L 08/14/18 06:05 Sharkey % (Auto) 5.0 % (0.0-10.0) 08/14/18 06:05 Eos % (Auto) 1.1 % (0.0-4.0) 08/14/18 06:05 Baso % (Auto) 1.0 % (0.0-2.0) 08/14/18 06:05 Neut # (Auto) 4.9 K/uL (1.8-7.0) 08/14/18 06:05 Lymph # (Auto) 0.7 K/uL (1.0-4.3) L 08/14/18 06:05 Sharkey # (Auto) 0.3 K/uL (0.0-0.8) 08/14/18 06:05 Eos # (Auto) 0.1 K/uL (0.0-0.7) 08/14/18 06:05 Baso # (Auto) 0.1 K/uL (0.0-0.2) 08/14/18 06:05 PT 15.2 Seconds (9.8-13.1) H 08/12/18 01:03 INR 1.3 08/12/18 01:03 APTT 35.3 Seconds (25.6-37.1) 08/12/18 01:03 D-Dimer, Quantitative 841 ng/mlDDU (0-230) H 08/12/18 16:15 pO2 27 mm/Hg (30-55) L 08/12/18 03:52 VBG pH 7.41 (7.32-7.43) 08/12/18 03:52 VBG pCO2 49 mmHg (40-60) 08/12/18 03:52 VBG HCO3 27.1 mmol/L 08/12/18 03:52 VBG Total CO2 32.6 mmol/L (22-28) H 08/12/18 03:52 VBG O2 Sat (Calc) 49.9 % (40-65) 08/12/18 03:52 VBG Base Excess 5.0 mmol/L (0.0-2.0) H 08/12/18 03:52 VBG Potassium 3.7 mmol/L (3.6-5.2) 08/12/18 03:52 Sodium 156.0 mmol/L (132-148) H 08/12/18 03:52 Chloride 119.0 mmol/L (98-107) H 08/12/18 03:52 Glucose 119 mg/dL (75-110) H 08/12/18 03:52 Lactate 1.2 mmol/L (0.7-2.1) 08/12/18 03:52 FiO2 21.0 % 08/12/18 03:52 Sodium 140 mmol/l (132-148) 08/17/18 10:52 Potassium 4.2 MMOL/L (3.6-5.0) 08/17/18 10:52 Chloride 107 mmol/L (98-107) 08/17/18 10:52 Carbon Dioxide 32 mmol/L (22-30) H 08/17/18 10:52 Anion Gap 5 (10-20) L 08/17/18 10:52 BUN 18 mg/dl (9-20) 08/17/18 10:52 Creatinine 0.6 mg/dl (0.8-1.5) L 08/17/18 10:52 Est GFR ( Amer) > 60 08/17/18 10:52 Est GFR (Non-Af Amer) > 60 08/17/18 10:52 Random Glucose 123 mg/dL (75-110) H 08/17/18 10:52 Calcium 7.7 mg/dL (8.4-10.2) L 08/17/18 10:52 Phosphorus 2.8 mg/dl (2.5-4.5) 08/15/18 06:05 Magnesium 2.1 MG/DL (1.6-2.3) 08/15/18 06:05 Iron 21 ug/dL (49-181) L 08/14/18 14:39 TIBC 125 ug/dL (250-450) L 08/14/18 14:39 % Saturation 17 % (20-55) L 08/14/18 14:39 Ferritin 1420.0 ng/Ml (17.9-464) H 08/14/18 14:39 Total Bilirubin 0.4 mg/dl (0.2-1.3) 08/15/18 06:05 AST 20 U/L (17-59) 08/15/18 06:05 ALT 20 U/L (21-72) L 08/15/18 06:05 Alkaline Phosphatase 66 U/L (38-126) 08/15/18 06:05 Total Protein 5.4 G/DL (6.3-8.2) L 08/15/18 06:05 Albumin 2.1 g/dL (3.5-5.0) L 08/15/18 06:05 Globulin 3.3 gm/dL (2.2-3.9) 08/15/18 06:05 Albumin/Globulin Ratio 0.6 (1.0-2.1) L 08/15/18 06:05 Vitamin B12 358 pg/mL (239-931) 08/14/18 14:39 Folate 5.3 ng/mL 08/14/18 14:39 Venous Blood Potassium 3.7 mmol/L (3.6-5.2) 08/12/18 03:52 Urine Color Nina (YELLOW) 08/12/18 01:25 Urine Clarity Turbid (Clear) 08/12/18 01:25 Urine pH 5.0 (5.0-8.0) 08/12/18 01:25 Ur Specific Gratis 1.021 (1.003-1.030) 08/12/18 01:25 Urine Protein 30 mg/dL (NEGATIVE) 08/12/18 01:25 Urine Glucose (UA) Neg mg/dL (NEGATIVE) 08/12/18 01:25 Urine Ketones Negative mg/dL (NEGATIVE) 08/12/18 01:25 Urine Blood Moderate (NEGATIVE) 08/12/18 01:25 Urine Nitrate Negative (NEGATIVE) 08/12/18 01:25 Urine Bilirubin Negative (NEGATIVE) 08/12/18 01:25 Urine Urobilinogen 2.0 mg/dL (0.2-1.0) 08/12/18 01:25 Ur Leukocyte Esterase Large [place]/uL (Negative) 08/12/18 01:25 Urine RBC (Auto) 19 /hpf (0-3) H 08/12/18 01:25 Urine WBC Clumps (Auto) Occ /hpf (NONE) H 08/12/18 01:25 Urine Microscopic WBC 337 /hpf (0-5) H 08/12/18 01:25 Ur Squamous Epith Cells < 1 /hpf (0-5) 08/12/18 01:25 Urine Bacteria Many (<OCC) H 08/12/18 01:25 Stool Occult Blood Negative (NEGATIVE) 08/14/18 15:24 Vancomycin Trough 37.1 ug/mL (5.0-10.0) H 08/18/18 05:30 Blood Type A POSITIVE 08/17/18 12:50 Blood Type Confirm A POSITIVE 08/17/18 13:00 Antibody Screen Negative 08/17/18 12:50 Crossmatch See Detail 08/17/18 12:50 BBK History Checked No verified bt 08/17/18 12:50 Discharge Exam - Head Exam Head Exam: NORMOCEPHALIC Discharge Plan - Follow Up Plan Condition: FAIR Disposition: TRANSF TO SNF Instructions: Urinary Tract Infection, Adult (DC)
[2018-08-18] MEDS ORDERED: LEVODOPA PEG SCH (22:00)
[2018-08-18] MEDS ORDERED: ENTACAPONE PEG SCH (22:00)
[2018-08-18] MEDS ORDERED: CARBIDOPA PEG SCH (22:00)
[2018-08-19] MEDS ORDERED: Albuterol 0.083% Inhal Sol (2.5 mg/3 mL) UD IH SCH (01:00)
[2018-08-19] MEDS ORDERED: Ipratropium 0.02% Inhal Soln (0.5 mg/2.5 ml) UD IH SCH (01:00)
== END 2018-08-18 15:54 | DRG 673 ==
LOC: H.ER 00:04 → H.ERHOLD 02:29 → H.MEDSURG1 05:30
PROVIDERS: ADMIT Internal Medicine; ATTEND Internal Medicine
PROC: 0JB70ZZ Excision of Back Subcutaneous Tissue and Fascia, Open Approach (ICD-10-PCS; principal; 2018-08-12)
PROC: 02HV33Z Insertion of Infusion Device into Superior Vena Cava, Percutaneous Approach (ICD-10-PCS; 2018-08-14)
PROC: B518ZZA Fluoroscopy of Superior Vena Cava, Guidance (ICD-10-PCS; 2018-08-14)
PROC: B548ZZA Ultrasonography of Superior Vena Cava, Guidance (ICD-10-PCS; 2018-08-14)
DX: T83.511A Infection and inflammatory reaction due to indwelling urethral catheter, initial encounter (principal); L89.154 Pressure ulcer of sacral region, stage 4; G93.41 Metabolic encephalopathy; E87.0 Hyperosmolality and hypernatremia; M86.9 Osteomyelitis, unspecified; N39.0 Urinary tract infection, site not specified; G20 Parkinson's disease; Z87.440 Personal history of urinary (tract) infections; J44.9 Chronic obstructive pulmonary disease, unspecified; R09.02 Hypoxemia; B96.20 Unspecified Escherichia coli [E. coli] as the cause of diseases classified elsewhere; E86.0 Dehydration; F02.80 Dementia in other diseases classified elsewhere, unspecified severity, without behavioral disturbance, psychotic disturbance, mood disturbance, and anxiety; I11.0 Hypertensive heart disease with heart failure; I50.9 Heart failure, unspecified; Z16.12 Extended spectrum beta lactamase (ESBL) resistance; R32 Unspecified urinary incontinence; R06.82 Tachypnea, not elsewhere classified

== ENCOUNTER 2018-08-19 22:29 | Inpatient (IN) | payer MEDICARE, MEDICAID ==
--- NOTE | 2018-08-19 22:56 | ED PDOC ---
HPI: Wound Care - HPI Time Seen by Provider: 08/19/18 22:34 Chief Complaint (Nursing): Wound Check Chief Complaint (Provider): Wound Check History Per: Patient Exam Limitations: no limitations Current Symptoms Are (Timing): Still Present Additional Complaint(s): 88 year old male referred from senior care for large sacral decubitus ulcer care. Patient was discharged from the hospital yesterday with known ulcer. Facility is requesting placement of wound vac. Offers no other complaints. PMD: Dr. Navarrete Past Medical History Reviewed: Historical Data, Nursing Documentation, Vital Signs Vital Signs: Last Vital Signs Temp 97.7 F 08/19/18 22:34 Pulse 90 08/19/18 22:34 Resp 16 08/19/18 22:34 BP 135/58 L 08/19/18 22:34 Pulse Ox 98 08/19/18 22:34 - Medical History PMH: Anemia, Benign Prostatic Hyperplasia, CHF, COPD, Dementia, HTN (denies), Parkinson's Disease Denies: Depression, Diabetes, Hepatitis, HIV, Chronic Kidney Disease, Seizures, Sexually Transmitted Disease - Surgical History Surgical History: No Surg Hx - Family History Family History: States: Unknown Family Hx - Home Medications Home Medications: Ambulatory Orders Medication Instructions Recorded Carbidopa/Levodopa/Entacapone 0.5 tab PEG QID 05/26/14 [Stalevo 150] Pramipexole Di-HCl [Mirapex ER] 0.5 mg PEG TID 05/26/14 Albuterol Sulfate 2.5 mg IH Q8 07/05/18 Finasteride [Proscar] 5 mg PEG DAILY 07/05/18 Scopolamine 1 mg/72 hr 1 patch TOP Q72 07/05/18 [Transderm-Scop] Acetaminophen [Non-Aspirin Pain 650 mg PEG Q6 PRN 08/12/18 Relief] Ascorbic Acid [Vitamin C 500 mg 500 mg PEG DAILY 08/12/18 Tab] Bisacodyl [Ducolax] 10 mg RC DAILY PRN 08/12/18 Carbidopa/Levodopa 25 - 100 tab PEG QID 08/12/18 [Carbidopa-Levodopa 25-100 Tab] Dextran 70/Hypromellose 1 each OP BID 08/12/18 [Artificial Tears] Doxazosin [Cardura] 4 mg PEG DAILY 08/12/18 Entacapone 200 mg PEG QID 08/12/18 Famotidine [Pepcid] 20 mg PEG DAILY 08/12/18 Ipratropium 0.02% [Ipratropium 0.02 inh IH Q8 08/12/18 [place] 2.5 Ml] Metoprolol Tartrate [Lopressor] 25 mg PEG BID 08/12/18 Rasagiline Mesylate [Azilect] 1 mg PEG DAILY 08/12/18 Zinc [Zinc Sulfate 220 mg Cap] 220 mg PEG DAILY 08/12/18 - Allergies Allergies/Adverse Reactions: Allergies Allergy/AdvReac Type Severity Reaction Status Date / Time No Known Allergies Allergy Verified 10/11/17 10:28 Review of Systems ROS Statement: Except As Marked, All Systems Reviewed And Found Negative Skin: Positive for: Other (large sacral decubitus ulcer) Physical Exam - Reviewed Nursing Documentation Reviewed: Yes Vital Signs Reviewed: Yes - Physical Exam Appears: Positive for: No Acute Distress Head Exam: Positive for: ATRAUMATIC, NORMAL INSPECTION, NORMOCEPHALIC Skin: Positive for: Normal Color, Warm, Dry Eye Exam: Positive for: EOMI, Normal appearance, PERRL Neck: Positive for: Normal, Painless ROM, Supple Cardiovascular/Chest: Positive for: Regular Rate, Rhythm. Negative for: Murmur Respiratory: Positive for: Rhonchi (scattered ). Negative for: Respiratory Distress Gastrointestinal/Abdominal: Positive for: Normal Exam, Soft, Other (G-tube in place). Negative for: Tenderness Back: Positive for: Other (5 cm stage IV decubitus ulcer without drainage) Extremity: Positive for: Other (contracted extremities; no ulcers noted) Neurologic/Psych: Positive for: Alert, Oriented. Negative for: Motor/Sensory D eficits - Laboratory Results Result Diagrams: 08/19/18 22:57 - ECG O2 Sat by Pulse Oximetry: 98 (RA) Pulse Ox Interpretation: Normal Medical Decision Making Medical Decision Makin:50 Initial Plan: -CMP --VBG --Wound care --CBC --EKG --Wound cx --Blood cx --Urine cx Scribe Attestation: Documented by Camille Flowers acting as a scribe for José Manuel Givens MD Provider Scribe Attestation: All medical record entries made by the Scribe were at my direction and personally dictated by me. I have reviewed the chart and agree that the record accurately reflects my personal performance of the history, physical exam, [facility] decision making, and the department course for this patient. I have also personally directed, reviewed, and agree with the discharge instructions and disposition. Disposition - Clinical Impression Clinical Impression: Stage IV pressure ulcer of sacral region - Patient ED Disposition Is Patient to be Admitted: Yes - Disposition Disposition Time: 23:26 Condition: FAIR Forms: [employer] ([place]ian) - Pt Status Changed To: Hospital Disposition Of: Observation - POA Present On Arrival: Pressure Ulcer
[2018-08-19 23:14] LABS: BASO % 0.8 % (0.0-2.0); EOS % 0.4 % (0.0-4.0); HEMOGLOBIN 9.3 g/dL (12.0-18.0); LYMPH # 0.6 K/uL (1.0-4.3); LYMPH % 10.2 % (20.0-40.0); MEAN CELL VOLUME 91.6 fl (80.0-94.0); MEAN CORPUSCULAR HEMOGLOBIN 29.1 pg (27.0-31.0); MEAN CORPUSCULAR HGB CONC 31.8 g/dL (33.0-37.0); MEAN PLATELET VOLUME 7.8 fl (7.2-11.7); MONO # 0.4 K/uL (0.0-0.8); MONO % 6.1 % (0.0-10.0); NEUT # 4.9 K/uL (1.8-7.0); NEUT % 82.5 % (50.0-75.0); RBC 3.2 Mil/uL (4.40-5.90); RED CELL DISTRIBUTION WIDTH 18.3 % (11.5-14.5)
[2018-08-19 23:24] LABS: VENOUS BLOOD GAS BASE EXCESS 8.1 mmol/L (0.0-2.0); VENOUS BLOOD GAS PCO2 48 mmHg (40-60); VENOUS BLOOD GAS PO2 31 mm/Hg (30-55); VENOUS BLOOD PH 7.45 (7.32-7.43)
[2018-08-19 23:28] LABS: GRANULAR CAST 14 /lpf (0-1); SQUAMOUS EPITHIAL < 1 /hpf (0-5); URINE BACTERIA OCC (<OCC); URINE BILIRUBIN NEGATIVE (NEGATIVE); URINE BLOOD SMALL (NEGATIVE); URINE CALCIUM OXALATE CRYSTALS MOD /hpf (<OCC); URINE CLARITY CLOUDY (Clear); URINE COLOR AMBER (YELLOW); URINE GLUCOSE (UA) NEG (NEGATIVE); URINE HYALINE CAST 0-2 /hpf (0-2); URINE LEUKOCYTE ESTERASE MOD Leu/uL (Negative); URINE PROTEIN 30 mg/dL (NEGATIVE)
[2018-08-19 23:44] LABS: ALB/GLOB RATIO 0.6 (1.0-2.1); ALBUMIN 2.3 g/dL (3.5-5.0); ALT/SGPT 25 U/L (21-72); AST/SGOT 31 U/L (17-59); BLOOD UREA NITROGEN 25 mg/dl (9-20); GFR NON-AFRICAN AMERICAN > 60
[2018-08-20] MEDS ORDERED: Acetaminophen 650mg/20.3ml solution UD PEG PRN (06:52)
[2018-08-20] MEDS ORDERED: Magnesium Hydroxide Susp 30 ml UD PEG PRN (09:00)
[2018-08-20] MEDS ORDERED: MEROPENEM IVPB SCH (09:00)
[2018-08-20] MEDS ORDERED: [UNRECOGNIZED DRUG - OTHER] IVPB SCH (09:00)
[2018-08-20] MEDS: Meropenem 1 GM in Sodium Chloride 0.9% 100 ML IVPB SCH ×2 (09:04→17:30)
[2018-08-20] MEDS: Fluconazole IV 200mg/100 ml NS 100 ML IVPB SCH (09:05)
[2018-08-20] MEDS: Ascorbic Acid 500 mg/5 ml Liq(50 ml) PEG SCH (09:07)
[2018-08-20] MEDS: Pantoprazole 40 mg Susp UD PEG SCH (09:09)
--- NOTE | 2018-08-20 14:47 | CARD ---
APPROVED REPORT Date of service: 08/19/2018 EKG Measurement Heart [id number] <Conclusion> Normal sinus rhythm Moderate voltage criteria for LVH, may be normal variant Abnormal ECG
[2018-08-20] MEDS: Albuterol-Ipratrop 3 mg / 0.5 (3 ml) UD INH PRN (22:54)
[2018-08-21] MEDS: Meropenem 1 GM in Sodium Chloride 0.9% 100 ML IVPB SCH ×3 (00:25→17:24)
--- NOTE | 2018-08-21 09:18 | CP.PCM.PCO ---
Assessment & Plan - Assessment and Plan (Free Text) Assessment: General Surgery Note - Dr. Denise 88M w/ chronic stage 4 sacral decubitus ulcer Plan: Continue local wound care w/ portable wound vac at continuous, 125mmHg Can change wound vac every 3-4 days Monitor for improvement No further surgical intervention
[2018-08-21] MEDS: Ascorbic Acid 500 mg/5 ml Liq(50 ml) PEG SCH (09:32)
[2018-08-21] MEDS: Fluconazole IV 200mg/100 ml NS 100 ML IVPB SCH (09:35)
[2018-08-21] MEDS: Pantoprazole 40 mg Susp UD PEG SCH (09:37)
[2018-08-21 19:22] VITALS: BMI 26.6
--- NOTE | 2018-08-21 23:12 | CP.PCM.HP ---
History of Present Illness - History of Present Illness History of Present Illness: CC: Sacral Ulcer History of Present Illness: An 88 Year Old male referred from senior living for large sacral Decubitus Ulcer. Patient was discharged from the hospital yesterday with known ulcer. Facility is unable to place & requesting placement of wound Vacuum. Offers no other complaints. Present on Admission - Present on Admission Any Indicators Present on Admission: Yes Decubitus Ulcer Stage: IV Review of Systems - Review of Systems All systems: reviewed and no additional remarkable complaints except Review of Systems: As per HPI Past Patient History - Tetanus Immunizations Tetanus Immunization: Unknown - Past Medical History & Family History Past Medical History?: Yes Past Family History: Reviewed and not pertinent - Past Social History Smoking Status: Never Smoked Alcohol: None Drugs: Denies - CARDIAC Hx Cardiac Disorders: Yes Hx Congestive Heart Failure: Yes Hx Hypertension: Yes (denies) - PULMONARY Hx Respiratory Disorders: Yes Hx Chronic Obstructive Pulmonary Disease (COPD): Yes - NEUROLOGICAL Hx Neurological Disorder: Yes HX Cerebrovascular Accident: Yes Hx Dementia: Yes Hx Parkinson's Disease: Yes Hx Seizures: No - HEENT Hx HEENT Problems: No - RENAL Hx Chronic Kidney Disease: No - ENDOCRINE/METABOLIC Hx Endocrine Disorders: No Hx Diabetes Mellitus Type 2: No - HEMATOLOGICAL/ONCOLOGICAL Hx Blood Disorders: Yes Hx AIDS: No Hx Anemia: Yes Hx Human Immunodeficiency Virus (HIV): No - INTEGUMENTARY Hx Dermatological Problems: Yes Other/Comment: Unstageable ulcer to sacrum - MUSCULOSKELETAL/RHEUMATOLOGICAL Hx Musculoskeletal Disorders: Yes Hx Falls: No Hx Osteomyelitis: Yes - GASTROINTESTINAL Hx Gastrointestinal Disorders: No Other/Comment: peg mid abd - GENITOURINARY/GYNECOLOGICAL Hx Genitourinary Disorders: Yes Hx Incontinence: Yes Hx Sexually Transmitted Disorders: No Hx Urinary Tract Infection: Yes - PSYCHIATRIC Hx Psychophysiologic Disorder: No Hx Substance Use: No - SURGICAL HISTORY Hx Surgeries: Yes Other/Comment: PEG placement - ANESTHESIA Hx Anesthesia: Yes Hx Anesthesia Reactions: (unknown) Hx Malignant Hyperthermia: (UNKNOWN) Meds Home Medications: Home Medication List Medication Instructions Recorded Confirmed Type Fluconazole [Diflucan] 200 mg PO DAILY 42 Days ml 08/20/18 Rx Allergies/Adverse Reactions: Allergies Allergy/AdvReac Type Severity Reaction Status Date / Time No Known Allergies Allergy Verified 10/11/17 10:28 Physical Exam - Constitutional Appears: No Acute Distress, Cachectic, Chronically Ill - Head Exam Head Exam: ATRAUMATIC, NORMAL INSPECTION, NORMOCEPHALIC - Eye Exam Eye Exam: EOMI, Normal appearance, PERRL Pupil Exam: NORMAL ACCOMODATION, PERRL - ENT Exam ENT Exam: Mucous Membranes Moist, Normal Exam - Neck Exam Neck exam: Positive for: Normal Inspection - Respiratory Exam Respiratory Exam: Clear to Auscultation Bilateral, NORMAL BREATHING PATTERN - Cardiovascular Exam Cardiovascular Exam: REGULAR RHYTHM, +S1, +S2 - GI/Abdominal Exam GI & Abdominal Exam: Normal Bowel Sounds, Soft. absent: Tenderness - Extremities Exam Extremities exam: Positive for: normal capillary refill, normal inspection - Back Exam Additional comments: Stage IV Sacral Decubitus Ulcer. - Neurological Exam Neurological exam: Alert, CN II-XII Intact, Normal Gait, Oriented x3, Reflexes Normal - Psychiatric Exam Psychiatric exam: Normal Affect, Normal Mood - Skin Skin Exam: Dry Results - Vital Signs Recent Vital Signs: Last Vital Signs Temp 97.8 F 08/21/18 16:13 Pulse 97 H 08/21/18 17:18 Resp 20 08/21/18 16:13 BP 106/62 08/21/18 17:18 Pulse Ox 96 08/21/18 16:13 - Labs Result Diagrams: 08/22/18 05:45 08/22/18 05:45 Labs: Laboratory Results - last 24 hr 08/21/18 20:24 Vancomycin Trough 23.8 H Assessment & Plan (1) Osteomyelitis of low back Status: Acute Priority: High (2) Stage IV pressure ulcer of sacral region Status: Acute Priority: High (3) UTI due to extended-spectrum beta lactamase (ESBL) producing Escherichia coli Status: Acute Priority: High (4) Parkinsonian syndrome Status: Chronic Priority: High - Assessment and Plan (Free Text) Plan: IVF IV Diflucan, Vancomycin and Merem Pending Wound Vacuum Pain medication PRN
[2018-08-22] MEDS: Meropenem 1 GM in Sodium Chloride 0.9% 100 ML IVPB SCH ×3 (00:17→16:02)
[2018-08-22 06:07] LABS: HEMOGLOBIN 8.6 g/dL (12.0-18.0); MEAN CELL VOLUME 92.6 fl (80.0-94.0); MEAN CORPUSCULAR HGB CONC 32.4 g/dL (33.0-37.0); RBC 2.87 Mil/uL (4.40-5.90); RED CELL DISTRIBUTION WIDTH 18.6 % (11.5-14.5); WHITE BLOOD COUNT 4.4 K/uL (4.8-10.8)
[2018-08-22 06:18] LABS: BLOOD UREA NITROGEN 26 mg/dl (9-20); CALCIUM 7.8 mg/dL (8.4-10.2); GFR NON-AFRICAN AMERICAN > 60
--- NOTE | 2018-08-22 06:28 | CP.PCM.PN ---
Subjective - Date & Time of Evaluation Date of Evaluation: 08/21/18 Time of Evaluation: 07:20 - Subjective Subjective: Seen and Examined at the bed side. No fever. Waiting LT Facility to provide Wound Vacuum, and fit the Wound Vacuum in the Hospital. Objective - Vital Signs/Intake and Output Vital Signs (last 24 hours): Temp Pulse Resp BP Pulse Ox 98.5 F 83 18 129/56 L 97 08/22/18 00:46 08/22/18 00:46 08/22/18 00:46 08/22/18 00:46 08/22/18 00:46 - Medications Medications: Current Medications Acetaminophen (Tylenol 650mg/20.3ml Solution Ud) 650 mg PEG Q6 PRN PRN Reason: Temperature 101 F and above Albuterol/Ipratropium (Duoneb 3 Mg/0.5 Mg (3 Ml) Ud) 3 ml INH RQ6 PRN PRN Reason: Shortness of Breath Last Admin: 08/20/18 22:54 Dose: 3 ml Ascorbic Acid (Vitamin C Liq) 500 mg PEG DAILY [facility] Last Admin: 08/21/18 09:32 Dose: 500 mg Bisacodyl (Dulcolax) 10 mg OR DAILY PRN PRN Reason: if no BM adrienne 3 days Entacapone (Comtan) 200 mg PEG QID [facility] Last Admin: 08/21/18 21:21 Dose: 200 mg Finasteride (Proscar) 5 mg PEG DAILY [facility] Last Admin: 08/21/18 09:35 Dose: 5 mg Heparin Sodium (Porcine) (Heparin) 5,000 units SC Q8 [facility]; Protocol Last Admin: 08/22/18 00:15 Dose: 5,000 units Home Med (Rasagiline Mesylate [Azilect]) 1 mg PEG DAILY [facility] Fluconazole (Diflucan Iv 200 Mg/100 Ml Ns) 100 mls @ 100 mls/hr IVPB DAILY [facility] Last Admin: 08/21/18 09:35 Dose: 100 mls/hr Vancomycin HCl 1 gm/ Sodium (Chloride) 250 mls @ 166.667 mls/hr IVPB Q12 [facility] Last Admin: 08/21/18 22:49 Dose: Not Given Meropenem 1 gm/ Sodium (Chloride) 100 mls @ 100 mls/hr IVPB Q8 [facility] Last Admin: 08/22/18 00:17 Dose: 100 mls/hr Magnesium Hydroxide (Milk Of Magnesia) 30 ml PEG DAILY PRN PRN Reason: Constipation Metoprolol Tartrate (Lopressor) 25 mg PEG BID [facility] Last Admin: 08/21/18 17:18 Dose: 25 mg Pantoprazole Sodium (Protonix Susp) 40 mg PEG DAILY [facility] Last Admin: 08/21/18 09:37 Dose: 40 mg Pramipexole Dihydrochloride (Mirapex) 0.5 mg PEG DAILY [facility] Last Admin: 08/21/18 09:37 Dose: 0.5 mg Scopolamine (Transderm-Scop) 1 patch TD Q72 [facility] Last Admin: 08/20/18 09:09 Dose: 1 patch Zinc Sulfate (Zinc Sulfate 220 Mg Cap) 220 mg PEG DAILY [facility] Last Admin: 08/21/18 09:37 Dose: 220 mg - Labs Labs: 08/22/18 05:45 08/22/18 05:45 - Constitutional Appears: No Acute Distress, Cachectic, Chronically Ill - Head Exam Head Exam: ATRAUMATIC, NORMAL INSPECTION, NORMOCEPHALIC - ENT Exam ENT Exam: Mucous Membranes Moist Additional comments: Adentulous of all Teeth Assessment and Plan (1) Osteomyelitis of low back Assessment & Plan: Status: Acute Priority: High (2) Stage IV pressure ulcer of sacral region Status: Acute Priority: High (3) UTI due to extended-spectrum beta lactamase (ESBL) producing Escherichia coli Status: Acute Priority: High (4) Parkinsonian Syndrome Status: Chronic Priority: High (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
[2018-08-22] MEDS: Ascorbic Acid 500 mg/5 ml Liq(50 ml) PEG SCH (09:28)
[2018-08-22] MEDS: Pantoprazole 40 mg Susp UD PEG SCH (09:28)
[2018-08-22] MEDS: Fluconazole IV 200mg/100 ml NS 100 ML IVPB SCH (09:30)
--- NOTE | 2018-08-22 13:26 | CP.PCM.CON ---
History of Present Illness - History of Present Illness History of Present Illness: 88 year old male, presents with a stage 4 sacral decubitus ulcer which persists despite wound vac rx and may require further debridement Has hx of MDRO's referred for ID eval for this PMH: Parkinson's and dementia, PSH: unknown FH: noncontributory SH: denies t/a/d ALL: NKDA Review of Systems - Review of Systems Systems not reviewed;Unavailable: Altered Mental Status All systems: reviewed and no additional remarkable complaints except - Constitutional Constitutional: absent: As Per HPI, Anorexia, Chills, Daytime Sleepiness, Excessive Sweating, Fatigue, Fever, Frequent Falls, Headache, Increased Appetite, Lethargy, Malaise, Night Sweats, Snoring, Sleep Apnea, Weight Gain, Weight Loss, Weakness, Other - EENT Eyes: absent: As Per HPI, Blind Spots, Blurred Vision, Change in Vision, Decreased Night Vision, Diplopia, Discharge, Dry Eye, Exophthalmos, Floaters, Irritation, Itchy Eyes, Loss of Peripheral Vision, Pain, Photophobia, Requires Corrective Lenses, Sees Flashes, Spots in Vision, Tunnel Vision, Other Visual Disturbances, Loss of Vision, Other Ears: absent: As Per HPI, Decreased Hearing, Ear Discharge, Ear Pain, Tinnitus, Abnormal Hearing, Disequilibrium, Dizziness, Other Nose/Mouth/Throat: absent: As Per HPI, Epistaxis, Nasal Congestion, Nasal Discharge, Nasal Obstruction, Nasal Trauma, Nose Pain, Post Nasal Drip, Sinus Pain, Sinus Pressure, Bleeding Gums, Change in Voice, Dental Pain, Dry Mouth, Dysphagia, Halitosis, Hoarsness, Lip Swelling, Mouth Lesions, Mouth Pain, Odynophagia, Sore Throat, Throat Swelling, Tongue Swelling, Facial Pain, Neck Pain, Neck Mass, Other - Cardiovascular Cardiovascular: absent: As Per HPI, Acrocyanosis, Chest Pain, Chest Pain at Rest, Chest Pain with Activity, Claudication, Diaphoresis, Dyspnea, Dyspnea on E xertion, Edema, Irregular Heart Rhythm, Pain Radiating to Arm/Neck/Jaw, Leg Edema, Leg Ulcers, Lightheadedness, Orthopnea, Palpitations, Paroxysmal Nocturnal Dyspnea, Pedal Edema, Radiating Pain, Rapid Heart Rate, Slow Heart Rate, Syncope, Other - Respiratory Respiratory: absent: As Per HPI, Cough, Dyspnea, Hemoptysis, Dyspnea on Exertion, Wheezing, Snoring, Stridor, Pain on Inspiration, Chest Congestion, Excessive Mucous Production, Change in Mucous Color, Pain with Coughing, Other - Gastrointestinal Gastrointestinal: absent: As Per HPI, Abdominal Pain, Belching, Bloating, Change in Bowel Habits, Change in Stool Character, Coffee Ground Emesis, Constipation, Cramping, Diarrhea, Dyspepsia, Dysphagia, Early Satiety, Excessive Flatus, Fecal Incontinence, Heartburn, Hematemesis, Hematochezia, Loose Stools, Melena, Nausea, Odynophagia, Temesmus, Vomiting, Other - Genitourinary Genitourinary: absent: As Per HPI, Change in Urinary Stream, Difficulty Urinating, Dysuria, Flank Pain, Hematuria, Pyuria, Nocturia, Urinary Incontinence, Urinary Frequency, Urinary Hesitance, Urinary Urgency, Voiding Freq/Small Amts, Freq UTI, Hx Renal/Bladder Calculi, Hx /Renal Surgery, Bladd er Distension, Other - Musculoskeletal Musculoskeletal: absent: As Per HPI, Abnormal Gait, Arthralgias, Atrophy, Back Pain, Deformity, Joint Swelling, Limited Range of Motion, Loss of Height, Muscle Cramps, Muscle Weakness, Myalgias, Neck Pain, Numbness, Radiating Pain into Limb, Stiffness, Tingling, Other Review of Systems - Review of Systems Systems not reviewed;Unavailable: Altered Mental Status - Constitutional Constitutional: As Per HPI - EENT Eyes: absent: As Per HPI, Blind Spots, Blurred Vision, Change in Vision, Decreased Night Vision, Diplopia, Discharge, Dry Eye, Exophthalmos, Floaters, Irritation, Itchy Eyes, Loss of Peripheral Vision, Pain, Photophobia, Requires Corrective Lenses, Sees Flashes, Spots in Vision, Tunnel Vision, Other Visual Disturbances, Loss of Vision, Other Ears: absent: As Per HPI, Decreased Hearing, Ear Discharge, Ear Pain, Tinnitus, Abnormal Hearing, Disequilibrium, Dizziness, Other Nose/Mouth/Throat: absent: As Per HPI, Epistaxis, Nasal Congestion, Nasal Discharge, Nasal Obstruction, Nasal Trauma, Nose Pain, Post Nasal Drip, Sinus Pain, Sinus Pressure, Bleeding Gums, Change in Voice, Dental Pain, Dry Mouth, Dysphagia, Halitosis, Hoarsness, Lip Swelling, Mouth Lesions, Mouth Pain, Odynophagia, Sore Throat, Throat Swelling, Tongue Swelling, Facial Pain, Neck Pain, Neck Mass, Other - Cardiovascular Cardiovascular: absent: As Per HPI, Acrocyanosis, Chest Pain, Chest Pain at R est, Chest Pain with Activity, Claudication, Diaphoresis, Dyspnea, Dyspnea on Exertion, Edema, Irregular Heart Rhythm, Pain Radiating to Arm/Neck/Jaw, Leg Edema, Leg Ulcers, Lightheadedness, Orthopnea, Palpitations, Paroxysmal Nocturnal Dyspnea, Pedal Edema, Radiating Pain, Rapid Heart Rate, Slow Heart Rate, Syncope, Other - Respiratory Respiratory: As Per HPI - Gastrointestinal Gastrointestinal: absent: As Per HPI, Abdominal Pain, Belching, Bloating, Change in Bowel Habits, Change in Stool Character, Coffee Ground Emesis, Constipation, Cramping, Diarrhea, Dyspepsia, Dysphagia, Early Satiety, Excessive Flatus, Fecal Incontinence, Heartburn, Hematemesis, Hematochezia, Loose Stools, Melena, Nausea, Odynophagia, Temesmus, Vomiting, Other - Genitourinary Genitourinary: absent: As Per HPI, Change in Urinary Stream, Difficulty Urinating, Dysuria, Flank Pain, Hematuria, Pyuria, Nocturia, Urinary Incontinence, Urinary Frequency, Urinary Hesitance, Urinary Urgency, Voiding Freq/Small Amts, Freq UTI, Hx Renal/Bladder Calculi, Hx /Renal Surgery, Bladder Distension, Other - Musculoskeletal Musculoskeletal: As Per HPI - Integumentary Integumentary: As Per HPI, Skin Pain, Wounds - Neurological Neurological: As Per HPI - Psychiatric Psychiatric: absent: As Per HPI, Abnormal Sleep Pattern, Anhedonia, Anxiety, Auditory Hallucinations, Behavioral Changes, Change in Appetite, Change in Libido, Confusion, Depression, Difficulty Concentrating, Hallucinations, Homicidal Ideation, Hopelessness, Irritability, Memory Loss, Mood Swings, Panic Attacks, Paranoia, Suicidal Ideation, Visual Hallucinations, Tactile Hallucinations, Other - Endocrine Endocrine: absent: As Per HPI, Change in Body Appearance, Change in Libido, Cold Intolorance, Deepening of Voice, Excessive Sweating, Fatigue, Flushing, Heat Intolorance, Increase in Ring/Shoe/Hat Size, Palpitations, Polydipsia, Polyphagia, Polyuria, Other - Hematologic/Lymphatic Hematologic: absent: As Per HPI, Easy Bleeding, Easy Bruising, Lymphadenopathy, Other Past Patient History - Tetanus Immunizations Tetanus Immunization: Unknown - Past Medical History & Family History Past Medical History?: Yes Past Family History: Reviewed and not pertinent - Past Social History Smoking Status: Never Smoked Alcohol: None Drugs: Denies - CARDIAC Hx Cardiac Disorders: Yes Hx Congestive Heart Failure: Yes Hx Hypertension: Yes (denies) - PULMONARY Hx Respiratory Disorders: Yes Hx Chronic Obstructive Pulmonary Disease (COPD): Yes - NEUROLOGICAL Hx Neurological Disorder: Yes HX Cerebrovascular Accident: Yes Hx Dementia: Yes Hx Parkinson's Disease: Yes Hx Seizures: No - HEENT Hx HEENT Problems: No - RENAL Hx Chronic Kidney Disease: No - ENDOCRINE/METABOLIC Hx Endocrine Disorders: No Hx Diabetes Mellitus Type 2: No - HEMATOLOGICAL/ONCOLOGICAL Hx Blood Disorders: Yes Hx AIDS: No Hx Anemia: Yes Hx Human Immunodeficiency Virus (HIV): No - INTEGUMENTARY Hx Dermatological Problems: Yes Other/Comment: Unstageable ulcer to sacrum - MUSCULOSKELETAL/RHEUMATOLOGICAL Hx Musculoskeletal Disorders: Yes Hx Falls: No Hx Osteomyelitis: Yes - GASTROINTESTINAL Hx Gastrointestinal Disorders: No Other/Comment: peg mid abd - GENITOURINARY/GYNECOLOGICAL Hx Genitourinary Disorders: Yes Hx Incontinence: Yes Hx Sexually Transmitted Disorders: No Hx Urinary Tract Infection: Yes - PSYCHIATRIC Hx Psychophysiologic Disorder: No Hx Substance Use: No - SURGICAL HISTORY Hx Surgeries: Yes Other/Comment: PEG placement - ANESTHESIA Hx Anesthesia: Yes Hx Anesthesia Reactions: (unknown) Hx Malignant Hyperthermia: (UNKNOWN) Meds Home Medications: Home Medication List Medication Instructions Recorded Confirmed Type Fluconazole [Diflucan] 200 mg PO DAILY 42 Days ml 08/20/18 Rx Allergies/Adverse Reactions: Allergies Allergy/AdvReac Type Severity Reaction Status Date / Time No Known Allergies Allergy Verified 10/11/17 10:28 - Medications Medications: Current Medications Acetaminophen (Tylenol 650mg/20.3ml Solution Ud) 650 mg PEG Q6 PRN PRN Reason: Temperature 101 F and above Albuterol/Ipratropium (Duoneb 3 Mg/0.5 Mg (3 Ml) Ud) 3 ml INH RQ6 PRN PRN Reason: Shortness of Breath Last Admin: 08/20/18 22:54 Dose: 3 ml Ascorbic Acid (Vitamin C Liq) 500 mg PEG DAILY [facility] Last Admin: 08/22/18 09:28 Dose: 500 mg Bisacodyl (Dulcolax) 10 mg [place] DAILY PRN PRN Reason: if no BM adrienne 3 days Entacapone (Comtan) 200 mg PEG QID [facility] Last Admin: 08/22/18 12:37 Dose: 200 mg Finasteride (Proscar) 5 mg PEG DAILY [facility] Last Admin: 08/22/18 09:29 Dose: 5 mg Heparin Sodium (Porcine) (Heparin) 5,000 units SC Q8 [facility]; Protocol Last Admin: 08/22/18 09:26 Dose: 5,000 units Home Med (Rasagiline Mesylate [Azilect]) 1 mg PEG DAILY [facility] Fluconazole (Diflucan Iv 200 Mg/100 Ml Ns) 100 mls @ 100 mls/hr IVPB DAILY [facility] Last Admin: 08/22/18 09:30 Dose: 100 mls/hr Meropenem 1 gm/ Sodium (Chloride) 100 mls @ 100 mls/hr IVPB Q8 [facility] Last Admin: 08/22/18 09:29 Dose: 100 mls/hr Magnesium Hydroxide (Milk Of Magnesia) 30 ml PEG DAILY PRN PRN Reason: Constipation Metoprolol Tartrate (Lopressor) 25 mg PEG BID [facility] Last Admin: 08/22/18 09:29 Dose: 25 mg Pantoprazole Sodium (Protonix Susp) 40 mg PEG DAILY [facility] Last Admin: 08/22/18 09:28 Dose: 40 mg Pramipexole Dihydrochloride (Mirapex) 0.5 mg PEG DAILY [facility] Last Admin: 08/22/18 09:29 Dose: 0.5 mg Scopolamine (Transderm-Scop) 1 patch TD Q72 [facility] Last Admin: 08/20/18 09:09 Dose: 1 patch Zinc Sulfate (Zinc Sulfate 220 Mg Cap) 220 mg PEG DAILY [facility] Last Admin: 08/22/18 09:31 Dose: 220 mg Physical Exam - Constitutional Appears: Confused, Cachectic, Chronically Ill - Head Exam Head Exam: ATRAUMATIC, NORMOCEPHALIC - Eye Exam Eye Exam: absent: Scleral icterus - ENT Exam ENT Exam: Mucous Membranes Dry - Neck Exam Neck exam: Negative for: Lymphadenopathy - Respiratory Exam Respiratory Exam: Decreased Breath Sounds, Rhonchi - Cardiovascular Exam Cardiovascular Exam: REGULAR RHYTHM, +S1, +S2 - GI/Abdominal Exam GI & Abdominal Exam: Diminished Bowel Sounds, Soft. absent: Tenderness - Rectal Exam Rectal Exam: Deferred - Exam Exam: Scrotal Swelling - Extremities Exam Extremities exam: Positive for: pedal edema, tenderness. Negative for: calf tenderness, pedal pulses present - Back Exam Back exam: absent: CVA tenderness (L), CVA tenderness (R) - Neurological Exam Neurological exam: Altered, CN II-XII Intact - Psychiatric Exam Psychiatric exam: Depressed - Skin Skin Exam: Dry Additional comments: stage IV sacrum Results - Vital Signs Recent Vital Signs: Last Vital Signs Temp 98.1 F 08/22/18 08:00 Pulse 76 08/22/18 08:00 Resp 20 08/22/18 08:00 BP 123/62 08/22/18 08:00 Pulse Ox 98 08/22/18 08:00 - Labs Result Diagrams: 08/22/18 05:45 08/22/18 05:45 Labs: Laboratory Results - last 24 hr 08/21/18 08/22/18 08/22/18 20:24 05:45 05:45 WBC 4.4 L RBC 2.87 L Hgb 8.6 L Hct 26.6 L MCV 92.6 MCH 30.0 MCHC 32.4 L RDW 18.6 H Plt Count 249 Sodium 141 Potassium 4.1 Chloride 110 H Carbon Dioxide 29 Anion Gap 6 L BUN 26 H Creatinine 0.6 L Est GFR ( Amer) > 60 Est GFR (Non-Af Amer) > 60 Random Glucose 128 H Calcium 7.8 L Vancomycin Trough 23.8 H 08/22/18 05:45 WBC RBC Hgb Hct MCV MCH MCHC RDW Plt Count Sodium Potassium Chloride Carbon Dioxide Anion Gap BUN Creatinine Est GFR ( Amer) Est GFR (Non-Af Amer) Random Glucose Calcium Vancomycin Trough 19.6 H Assessment & Plan (1) Stage IV pressure ulcer of sacral region Status: Acute Priority: High (2) Acute kidney injury Status: Acute (3) Altered mental state Status: Acute Priority: High (4) Osteomyelitis of low back Status: Acute Priority: High (5) UTI due to extended-spectrum beta lactamase (ESBL) producing Escherichia coli Status: Acute Priority: High - Assessment and Plan (Free Text) Assessment: cont wound care debridement iv rx diverting colostomy?
[2018-08-22] MEDS: Linezolid 600 mg in D5W 300 ml 600 MG/300 ML BAG IVPB SCH (20:40)
[2018-08-23] MEDS: Meropenem 1 GM in Sodium Chloride 0.9% 100 ML IVPB SCH ×3 (00:48→17:09)
[2018-08-23] MEDS: Pantoprazole 40 mg Susp UD PEG SCH (09:59)
[2018-08-23] MEDS: Ascorbic Acid 500 mg/5 ml Liq(50 ml) PEG SCH (10:00)
[2018-08-23] MEDS: Albuterol-Ipratrop 3 mg / 0.5 (3 ml) UD INH PRN ×2 (12:18→18:03)
[2018-08-23] MEDS: Fluconazole IV 200mg/100 ml NS 100 ML IVPB SCH (13:42)
[2018-08-23] MEDS: Linezolid 600 mg in D5W 300 ml 600 MG/300 ML BAG IVPB SCH (15:01)
--- NOTE | 2018-08-23 18:55 | CP.PCM.PN ---
Subjective - Date & Time of Evaluation Date of Evaluation: 08/23/18 Time of Evaluation: 08:00 - Subjective Subjective: VRE wound coag neg staph 1/2 blood cultures cont iv rx and wound care ?colostomy/ debridement Objective - Vital Signs/Intake and Output Vital Signs (last 24 hours): Temp Pulse Resp BP Pulse Ox 99 F 82 18 121/57 L 97 08/23/18 16:19 08/23/18 17:10 08/23/18 16:19 08/23/18 17:10 08/23/18 16:19 Intake and Output: 08/23/18 08/23/18 06:59 18:59 Output Total 900 Balance -900 - Medications Medications: Current Medications Acetaminophen (Tylenol 650mg/20.3ml Solution Ud) 650 mg PEG Q6 PRN PRN Reason: Temperature 101 F and above Albuterol/Ipratropium (Duoneb 3 Mg/0.5 Mg (3 Ml) Ud) 3 ml INH RQ6 PRN PRN Reason: Shortness of Breath Last Admin: 08/23/18 18:03 Dose: 3 ml Ascorbic Acid (Vitamin C Liq) 500 mg PEG DAILY [facility] Last Admin: 08/23/18 10:00 Dose: 500 mg Bisacodyl (Dulcolax) 10 mg [place] DAILY PRN PRN Reason: if no BM adrienne 3 days Finasteride (Proscar) 5 mg PEG DAILY [facility] Last Admin: 08/23/18 09:59 Dose: 5 mg Heparin Sodium (Porcine) (Heparin) 5,000 units SC Q8 [facility]; Protocol Last Admin: 08/23/18 17:01 Dose: 5,000 units Home Med (Rasagiline Mesylate [Azilect]) 1 mg PEG DAILY [facility] Fluconazole (Diflucan Iv 200 Mg/100 Ml Ns) 100 mls @ 100 mls/hr IVPB DAILY [facility] Last Admin: 08/23/18 13:42 Dose: 100 mls/hr Meropenem 1 gm/ Sodium (Chloride) 100 mls @ 100 mls/hr IVPB Q8 [facility] Last Admin: 08/23/18 17:09 Dose: 100 mls/hr Linezolid (Zyvox 600mg/300ml D5w) 600 mg in 300 mls @ 300 mls/hr IVPB Q12@0300,1500 [facility]; Protocol Magnesium Hydroxide (Milk Of Magnesia) 30 ml PEG DAILY PRN PRN Reason: Constipation Metoprolol Tartrate (Lopressor) 25 mg PEG BID [facility] Last Admin: 08/23/18 17:10 Dose: 25 mg Pantoprazole Sodium (Protonix Susp) 40 mg PEG DAILY [facility] Last Admin: 08/23/18 09:59 Dose: 40 mg Pramipexole Dihydrochloride (Mirapex) 0.5 mg PEG DAILY [facility] Last Admin: 08/23/18 09:59 Dose: 0.5 mg Scopolamine (Transderm-Scop) 1 patch TD Q72 [facility] Last Admin: 08/23/18 09:59 Dose: 1 patch Zinc Sulfate (Zinc Sulfate 220 Mg Cap) 220 mg PEG DAILY [facility] Last Admin: 08/23/18 09:59 Dose: 220 mg - Labs Labs: 08/22/18 05:45 08/22/18 05:45 - Constitutional Appears: Confused - Head Exam Head Exam: NORMOCEPHALIC - Eye Exam Eye Exam: absent: Scleral icterus - ENT Exam ENT Exam: Mucous Membranes Dry - Neck Exam Neck Exam: absent: Lymphadenopathy - Respiratory Exam Respiratory Exam: Decreased Breath Sounds - Cardiovascular Exam Cardiovascular Exam: REGULAR RHYTHM - GI/Abdominal Exam GI & Abdominal Exam: Distended, Soft Assessment and Plan (1) Stage IV pressure ulcer of sacral region Status: Acute (2) Acute kidney injury Status: Acute (3) Altered mental state Status: Acute (4) Osteomyelitis of low back Status: Acute (5) UTI due to extended-spectrum beta lactamase (ESBL) producing Escherichia coli Status: Acute
[2018-08-24] MEDS: Meropenem 1 GM in Sodium Chloride 0.9% 100 ML IVPB SCH ×2 (00:17→09:55)
[2018-08-24] MEDS ORDERED: Linezolid 600 mg in D5W 300 ml 600 MG/300 ML BAG IVPB SCH (03:00)
[2018-08-24 06:17] LABS: HEMOGLOBIN 8.3 g/dL (12.0-18.0); MEAN CELL VOLUME 91.5 fl (80.0-94.0); MEAN CORPUSCULAR HEMOGLOBIN 29.6 pg (27.0-31.0); MEAN CORPUSCULAR HGB CONC 32.3 g/dL (33.0-37.0); RBC 2.81 Mil/uL (4.40-5.90); RED CELL DISTRIBUTION WIDTH 18.2 % (11.5-14.5); WHITE BLOOD COUNT 4.8 K/uL (4.8-10.8)
[2018-08-24 06:38] LABS: BLOOD UREA NITROGEN 21 mg/dl (9-20); CALCIUM 7.7 mg/dL (8.4-10.2); GFR NON-AFRICAN AMERICAN > 60
[2018-08-24 08:03] VITALS: RESP 20; TEMP 97.9; O2SAT 96
[2018-08-24] MEDS: Ascorbic Acid 500 mg/5 ml Liq(50 ml) PEG SCH (09:56)
[2018-08-24] MEDS: Pantoprazole 40 mg Susp UD PEG SCH (09:56)
[2018-08-24 10:01] VITALS: BP 118/66; PULSE 90
[2018-08-24] MEDS: Fluconazole IV 200mg/100 ml NS 100 ML IVPB SCH (11:56)
--- NOTE | 2018-08-26 00:49 | CP.PCM.PN ---
Subjective - Date & Time of Evaluation Date of Evaluation: 08/22/18 Time of Evaluation: 07:20 - Subjective Subjective: Seen and Examined at the bed side. No fever. Waiting LT Facility to provide Wound Vacuum, and fit the Wound Vacuum in the Hospital. Blood Culture Growing G+Ve Cocci from the PICC Line, and Wound Growing VRE. Will Repeat Blood Cultures as possible contamination, and Change the IV Abx to Zosyn from Vancomycin. D/w ID. Objective - Vital Signs/Intake and Output Vital Signs (last 24 hours): Temp Pulse Resp BP Pulse Ox 97.9 F 90 20 118/66 96 08/24/18 08:03 08/24/18 10:01 08/24/18 08:03 08/24/18 10:01 08/24/18 08:03 - Labs Labs: 08/24/18 05:55 08/24/18 05:55 Assessment and Plan (1) Osteomyelitis of low back Status: Chronic (2) Stage IV pressure ulcer of sacral region Assessment & Plan: VRE from the Wound D/c Vancomycin , and start Zyvox 1600mg IV Q12hrs Status: Acute (3) UTI due to extended-spectrum beta lactamase (ESBL) producing Escherichia coli Status: Acute (4) Parkinsonian syndrome Status: Chronic (5) Bacteremia Assessment & Plan: Possible Contamination Vs Line Sepsis Status: Acute - Assessment and Plan (Free Text) Plan: Continue Current Care Repeat Bloood Culture Pending
--- NOTE | 2018-08-26 00:49 | CP.PCM.PN ---
Subjective - Date & Time of Evaluation Date of Evaluation: 08/23/18 Time of Evaluation: 07:20 - Subjective Subjective: Seen and Examined at the bed side. No fever. Waiting LT Facility to provide Wound Vacuum, and fit the Wound Vacuum in the Hospital. Unable to get the Wound Vacuum, and we will d/c patient to back [place] Objective - Vital Signs/Intake and Output Vital Signs (last 24 hours): Temp Pulse Resp BP Pulse Ox 97.9 F 90 20 118/66 96 08/24/18 08:03 08/24/18 10:01 08/24/18 08:03 08/24/18 10:01 08/24/18 08:03 - Labs Labs: 08/24/18 05:55 08/24/18 05:55 Assessment and Plan (1) Osteomyelitis of low back Status: Chronic (2) Stage IV pressure ulcer of sacral region Status: Acute (3) UTI due to extended-spectrum beta lactamase (ESBL) producing Escherichia coli Status: Acute (4) Parkinsonian syndrome Status: Chronic - Assessment and Plan (Free Text) Plan: Continue Current care Fredy d/c tomorrow if Repeat Blood Culture- No Growth.
--- NOTE | 2018-08-26 00:50 | CP.PCM.DIS ---
Provider - Provider Date of Admission: 08/21/18 11:48 Attending physician: Hamilton Escalante MD Consults: 08/19/18 22:50 Wound Care [Nursing Referral for Wound Care] Routine Comment: Physician Instructions: Reason For Exam: Sacral decubitus 08/20/18 06:39 Wound Care [Nursing Referral for Wound Care] Routine Comment: any reccomendations for tx to notify Physician Instructions: Place wound vac if neccessary Reason For Exam: Sacral wound unstageable 08/20/18 09:00 Nursing Referral for Palliative Care Routine Comment: POA dgtr Manal Consulting Provider: Shahnaz Natarajan Physician Instructions: Reason For Exam: MD orders 08/20/18 14:25 Surgery [General Surgery Consult] Routine Comment: Consulting Provider: José Manuel Denise Consulting Physician: José Manuel Denise Reason for Consult: Stage 4 pressure ulcer 08/22/18 10:43 Infectious Disease Consult Routine Comment: Consulting Provider: Ashish Terry Consulting Physician: Ashish Terry Reason for Consult: Infected wound, VRE, positive blood cultures Time Spent in preparation of Discharge (in minutes): 25 Diagnosis - Discharge Diagnosis (1) Osteomyelitis of low back Status: Acute Priority: High (2) Stage IV pressure ulcer of sacral region Status: Acute Priority: High (3) UTI due to extended-spectrum beta lactamase (ESBL) producing Escherichia coli Status: Acute Priority: High (4) Parkinsonian syndrome Status: Chronic Priority: High (5) Advanced dementia Status: Acute (6) Functional quadriplegia Status: Acute (7) Impaired mobility and ADLs Status: Acute Hospital Course - Lab Results Lab Results: Micro Results 08/21/18 14:00 Blood-Thru Central Line Blood Culture - Preliminary NO GROWTH AFTER 4 DAYS 08/21/18 13:07 Blood-Venous Blood Culture - Preliminary NO GROWTH AFTER 4 DAYS 08/19/18 22:57 Blood-Venous Blood Culture - Final NO GROWTH AFTER 5 DAYS 08/19/18 22:57 Blood-Venous Gram Stain - Final TEST NOT PERFORMED 08/19/18 23:12 Blood-Thru Central Line S.aureus & Coag-Neg Staph PNA FISH - Final 08/19/18 23:12 Blood-Thru Central Line Blood Culture - Final Coagulase Neg Staphylococcus 08/19/18 23:12 Blood-Thru Central Line Gram Stain - Final 08/19/18 22:57 Sacral Gram Stain - Final 08/19/18 22:57 Sacral Wound Culture - Final Vancomycin Resistant E.faecium 08/19/18 22:57 Urine,Baxter Urine Culture - Final No Growth (<1,000 CFU/ML) Most Recent Lab Values WBC 4.8 K/uL (4.8-10.8) 08/24/18 05:55 RBC 2.81 Mil/uL (4.40-5.90) L 08/24/18 05:55 Hgb 8.3 g/dL (12.0-18.0) L 08/24/18 05:55 Hct 25.7 % (35.0-51.0) L 08/24/18 05:55 MCV 91.5 fl (80.0-94.0) 08/24/18 05:55 MCH 29.6 pg (27.0-31.0) 08/24/18 05:55 MCHC 32.3 g/dL (33.0-37.0) L 08/24/18 05:55 RDW 18.2 % (11.5-14.5) H 08/24/18 05:55 Plt Count 241 K/uL (130-400) 08/24/18 05:55 MPV 7.8 fl (7.2-11.7) 08/19/18 22:57 Neut % (Auto) 82.5 % (50.0-75.0) H 08/19/18 22:57 Lymph % (Auto) 10.2 % (20.0-40.0) L 08/19/18 22:57 Ada % (Auto) 6.1 % (0.0-10.0) 08/19/18 22:57 Eos % (Auto) 0.4 % (0.0-4.0) 08/19/18 22:57 Baso % (Auto) 0.8 % (0.0-2.0) 08/19/18 22:57 Neut # (Auto) 4.9 K/uL (1.8-7.0) 08/19/18 22:57 Lymph # (Auto) 0.6 K/uL (1.0-4.3) L 08/19/18 22:57 Ada # (Auto) 0.4 K/uL (0.0-0.8) 08/19/18 22:57 Eos # (Auto) 0.0 K/uL (0.0-0.7) 08/19/18 22:57 Baso # (Auto) 0.0 K/uL (0.0-0.2) 08/19/18 22:57 pO2 31 mm/Hg (30-55) 08/19/18 23:20 VBG pH 7.45 (7.32-7.43) H 08/19/18 23:20 VBG pCO2 48 mmHg (40-60) 08/19/18 23:20 VBG HCO3 30.3 mmol/L 08/19/18 23:20 VBG Total CO2 34.9 mmol/L (22-28) H 08/19/18 23:20 VBG O2 Sat (Calc) 66.5 % (40-65) H 08/19/18 23:20 VBG Base Excess 8.1 mmol/L (0.0-2.0) H 08/19/18 23:20 VBG Potassium 4.3 mmol/L (3.6-5.2) 08/19/18 23:20 Sodium 138.0 mmol/L (132-148) 08/19/18 23:20 Chloride 107.0 mmol/L (98-107) 08/19/18 23:20 Glucose 116 mg/dL (75-110) H 08/19/18 23:20 Lactate 1.0 mmol/L (0.7-2.1) 08/19/18 23:20 FiO2 21.0 % 08/19/18 23:20 Sodium 137 mmol/l (132-148) 08/24/18 05:55 Potassium 4.4 MMOL/L (3.6-5.0) 08/24/18 05:55 Chloride 104 mmol/L (98-107) 08/24/18 05:55 Carbon Dioxide 29 mmol/L (22-30) 08/24/18 05:55 Anion Gap 8 (10-20) L 08/24/18 05:55 BUN 21 mg/dl (9-20) H 08/24/18 05:55 Creatinine 0.6 mg/dl (0.8-1.5) L 08/24/18 05:55 Est GFR ( Amer) > 60 08/24/18 05:55 Est GFR (Non-Af Amer) > 60 08/24/18 05:55 Random Glucose 121 mg/dL (75-110) H 08/24/18 05:55 Calcium 7.7 mg/dL (8.4-10.2) L 08/24/18 05:55 Total Bilirubin 0.5 mg/dl (0.2-1.3) 08/19/18 22:57 AST 31 U/L (17-59) 08/19/18 22:57 ALT 25 U/L (21-72) 08/19/18 22:57 Alkaline Phosphatase 83 U/L (38-126) 08/19/18 22:57 Total Protein 6.0 G/DL (6.3-8.2) L 08/19/18 22:57 Albumin 2.3 g/dL (3.5-5.0) L 08/19/18 22:57 Globulin 3.7 gm/dL (2.2-3.9) 08/19/18 22:57 Albumin/Globulin Ratio 0.6 (1.0-2.1) L 08/19/18 22:57 Venous Blood Potassium 4.3 mmol/L (3.6-5.2) 08/19/18 23:20 Urine Color Nina (YELLOW) 08/19/18 22:57 Urine Clarity Cloudy (Clear) 08/19/18 22:57 Urine pH 5.0 (5.0-8.0) 08/19/18 22:57 Ur Specific [place] 1.019 (1.003-1.030) 08/19/18 22:57 Urine Protein 30 mg/dL (NEGATIVE) 08/19/18 22:57 Urine Glucose (UA) Neg mg/dL (NEGATIVE) 08/19/18 22:57 Urine Ketones Trace mg/dL (NEGATIVE) 08/19/18 22:57 Urine Blood Small (NEGATIVE) 08/19/18 22:57 Urine Nitrate Negative (NEGATIVE) 08/19/18 22:57 Urine Bilirubin Negative (NEGATIVE) 08/19/18 22:57 Urine Urobilinogen 2.0 mg/dL (0.2-1.0) 08/19/18 22:57 Ur Leukocyte Esterase Mod [place]/uL (Negative) 08/19/18 22:57 Urine RBC (Auto) 9 /hpf (0-3) H 08/19/18 22:57 Urine Microscopic WBC 77 /hpf (0-5) H 08/19/18 22:57 Ur Squamous Epith Cells < 1 /hpf (0-5) 08/19/18 22:57 Calcium Oxalate Crystal Mod /hpf (<OCC) H 08/19/18 22:57 Urine Bacteria Occ (<OCC) H 08/19/18 22:57 Hyaline Casts 0-2 /hpf (0-2) 08/19/18 22:57 Granular Casts (Auto) 14 /lpf (0-1) 08/19/18 22:57 Vancomycin Trough 19.6 ug/mL (5.0-10.0) H 08/22/18 05:45 Discharge Exam - Head Exam Head Exam: NORMOCEPHALIC Discharge Plan - Discharge Medications Prescriptions: Fluconazole [Diflucan] 200 mg PO DAILY 42 Days ml - Follow Up Plan Condition: FAIR Disposition: TRANSF TO SNF Instructions: Pressure Sores (DC), Negative Pressure Wound Therapy Referrals: Hamilton Escalante MD [Staff Provider] -
--- NOTE | 2018-08-26 01:35 | PQF ---
PROVIDER RESPONSE TEXT: Acute Lumbosacral and Sacrooccygeal Osteomyelitis REVIEWER QUERY TEXT: Documentation Clarification Your help is requested in clarifying the following clinical documentation, if you can please further specify in the medical record and discharge summary. Documentation of Osteomyelitis of low back status acute. CT done on 08/13/18: Findings are most roberto tible with a large sacral pressure ulcer with erosion in the coccyx concerning for osteomyelitis. Ple ase further clarify "low back": --Lumbar --Lumbosacral --Sacrococcygeal The patient's Clinical Indicators include: Documentation of Osteomyelitis of low back status acute. Discharged from the hospital day [employer] with known ulcer. CT done on 08/13/18: Findings are most compatible with a large sacral pressure ulcer with erosion in the coccyx concerning for osteomyelitis Rx: IVAB Query created by: Marily Hernández on 08/24/2018 11:02 AM Electronically signed by: Hamilton Escalante MD 08/26/2018 1:32 AM
--- NOTE | 2018-08-26 01:35 | PQF ---
PROVIDER RESPONSE TEXT: -Stage IV Sacral Pressure Ulcer Infection with VRE with Acute Osteomyelitis, Blood Culture +most Like ly to be Contamination -Baxter Catheter due to stage IV Pressure Ulcer -PICC Line for Lead Technologist In Cytogenetics IV antibiotics for Acute Osteomyelitis of the Spine REVIEWER QUERY TEXT: Clarification of Clinical Diagnostic Findings Please clarify if there is an associated diagnosis or not to go along with the following: Blood CS x 1 thru central line growing gram + cocci . Blood CS venous no growth 48 hours. Patient noted to have R PICC, PEG tube , Baxter. Please clarify documentation or clinical relevance for the clinical / diagnostic findings or whether those are insignificant or unable to be further specified. The patient's Clinical Indicators include: TEMP: 97.7, 98, 98.1, 97.3, 97.5, 98.2 HR:90, 82, 84, 80, 80, 80, 84 BP:135/58, 110/64, 128/58, 131/67 WBC 6.0 Rx IVAB Query created by: Marily Hernández on 08/22/2018 12:23 PM Electronically signed by: Hamilton Escalante MD 08/26/2018 1:32 AM
--- NOTE | 2018-08-27 14:31 | PQF ---
PROVIDER RESPONSE TEXT: Marino this admission REVIEWER QUERY TEXT: Clinical Validity Acute Kidney Injury is listed in the ID consult and progress notes. Please clarify if this diagnosis is for this current admission or a history/previous admission. BUN 25, 26, 12, Creatinine 0.7, 0.6, 0.6 GFR >60 Additional clinical indicators are required to support your documented diagnosis of Acute Kidney In rohini. Please respond and also state in your next progress note whether: -- Condition exists and also please provide clinical indicators to support the diagnosis -- Condition does not exist and also please provide amended documentation in the medical record to cl po -- Unable to provide additional clarity regarding the diagnosis -- Other, please specify The patient's Clinical Indicators include: Acute Kidney Injury is listed in the ID consult and progress notes BUN 25, 26, 12, Creatinine 0.7, 0.6, 0.6 GFR >60 Query created by: Marily Hernández on 08/24/2018 10:51 AM Electronically signed by: Ashish Terry MD 08/27/2018 2:29 PM
== END 2018-08-24 13:38 | DRG 592 ==
LOC: H.ER 22:29 → H.ERHOLD 23:25 → H.MEDSURG1 08-20 03:17 → OBSVTOIN 08-21 11:48
PROVIDERS: ADMIT Internal Medicine; ATTEND Internal Medicine
DX: L89.154 Pressure ulcer of sacral region, stage 4 (principal); R53.2 Functional quadriplegia; N39.0 Urinary tract infection, site not specified; N17.9 Acute kidney failure, unspecified; M46.27 Osteomyelitis of vertebra, lumbosacral region; M46.28 Osteomyelitis of vertebra, sacral and sacrococcygeal region; G20 Parkinson's disease; B96.20 Unspecified Escherichia coli [E. coli] as the cause of diseases classified elsewhere; B96.89 Other specified bacterial agents as the cause of diseases classified elsewhere; F02.80 Dementia in other diseases classified elsewhere, unspecified severity, without behavioral disturbance, psychotic disturbance, mood disturbance, and anxiety; Z16.12 Extended spectrum beta lactamase (ESBL) resistance; J44.9 Chronic obstructive pulmonary disease, unspecified; N40.0 Benign prostatic hyperplasia without lower urinary tract symptoms; I50.9 Heart failure, unspecified; Z93.1 Gastrostomy status; Z86.73 Personal history of transient ischemic attack (TIA), and cerebral infarction without residual deficits; F32.9 Major depressive disorder, single episode, unspecified; B95.2 Enterococcus as the cause of diseases classified elsewhere; Z16.21 Resistance to vancomycin